=== PATIENT | male | born 1950 | race Caucasian/White ===

== ENCOUNTER 2017-08-07 09:15 | Inpatient (IN) | payer BC, OTHER ==
[2017-07-09 13:22] VITALS: BMI 32.0
--- NOTE | 2017-07-09 14:01 | PAT Medication Instructions ---
Service Date Jul 09, 2017. Current Home Medication List Acetaminophen (Tylenol), 1,000 MG PO BID Amlodipine (Norvasc), 10 MG PO QAM Aspirin (Aspirin Ec), 81 MG PO QPM Atenolol (Tenormin), 50 MG PO QAM Atorvastatin (Lipitor), 40 MG PO QPM Calcium Ascorbate (Vitamin C), 500 MG PO BID Coenzyme Q10 (Ubidecarenone) (Coq10), 200 MG PO QAM Ezetimibe (Zetia), 10 MG PO QPM Fexofenadine Hcl (Lisseth Allergy), 1 TAB PO QAM Fish Oil (Stamford-3), 1 CAP PO BID Vitamin E (Alph-E), 400 UNITS PO QPM [Hydrochlorothiazide], 1 TAB PO QAM Medication Instructions For Your Scheduled Surgery - Hold the following medications 2 weeks prior to surgery: Coenzyme Q10 (Ubidecarenone) (Coq10), 200 MG PO QAM Fish Oil (Stamford-3), 1 CAP PO BID Vitamin E (Alph-E), 400 UNITS PO QPM - Hold the following medications the morning of surgery: Fexofenadine Hcl (Lisseth Allergy), 1 TAB PO QAM [Hydrochlorothiazide], 1 TAB PO QAM Calcium Ascorbate (Vitamin C), 500 MG PO BID - Take the following medications the morning of surgery with a sip of water OTHERWISE NOTHING TO EAT OR DRINK AFTER MIDNIGHT: Amlodipine (Norvasc), 10 MG PO QAM Atenolol (Tenormin), 50 MG PO QAM Acetaminophen (Tylenol), 1,000 MG PO BID (may take if needed up to 4 hours prior to surgery) - Take the following medications as scheduled the night before surgery: Ezetimibe (Zetia), 10 MG PO QPM Aspirin (Aspirin Ec), 81 MG PO QPM Atorvastatin (Lipitor), 40 MG PO QPM Acetaminophen (Tylenol), 1,000 MG PO BID Calcium Ascorbate (Vitamin C), 500 MG PO BID If you have any questions please call us at [phone] or [phone] or [phone]
--- NOTE | 2017-07-09 14:46 | DIAGNOSTIC IMAGING REPORT ---
TWO VIEW CHEST CLINICAL HISTORY: Preoperative examination. FINDINGS: PA and lateral chest radiographs are obtained. No prior studies are available for comparison at the time of dictation. The heart is enlarged and there is atherosclerotic calcification of the thoracic aorta. The pulmonary vasculature is noncongested. Apparent pleural thickening at the left lung base is likely related to overlying soft tissue. No airspace consolidation or pleural effusion is identified. There is no pneumothorax. The skeletal structures are osteopenic. Degenerative change is seen in the shoulders and thoracic spine. A large calcified joint body is suggested in the left shoulder. IMPRESSION: 1. Cardiomegaly with no acute cardiopulmonary abnormality. 2. Apparent pleural thickening at the left lung base is likely related to overlying soft tissue. Correlation with oblique views is recommended for confirmation. Electronically signed by: Jose Dale M.D. 07/09/2017 2:44 PM Dictated Date/Time: 07/09/2017 2:43 PM
[2017-07-09 14:50] LABS: BASO % 0.3 %; BASO ABS # 0.02 K/uL (0-0.2); EOS % 1.6 %; EOS ABS # 0.11 K/uL (0-0.5); IG# 0.01 K/uL (0.00-0.02); LYMPH % 25.3 %; MEAN CELL VOLUME 86.9 fL (80-100); MEAN CORPUSCULAR HEMOGLOBIN 30.3 pg (25-34); MEAN CORPUSCULAR HGB CONC 34.9 g/dl (32-36); MONO % 9.7 %; MONO ABS # 0.65 K/uL (0.11-0.59); NEUT ABS # 4.24 K/uL (1.4-6.5); PLATELET COUNT 244 K/uL (130-400); RED CELL DISTRIBUTION WIDTH CV 12.8 % (11.5-14.5); WHITE BLOOD COUNT 6.73 K/uL (4.8-10.8)
[2017-07-09 15:02] LABS: ALBUMIN 3.6 gm/dl (3.4-5.0); CALCIUM 8.9 mg/dl (8.5-10.1); CREATININE 0.82 mg/dl (0.60-1.40); POTASSIUM 3.6 mmol/L (3.5-5.1); PTT PATIENT 25.7 SECONDS (21.0-31.0)
[2017-07-10 07:19] LABS: HEMOGLOBIN A1C 5.5 % (4.5-5.6)
--- NOTE | 2017-08-06 18:32 | HISTORY & PHYSICAL EXAMINATION ---
DATE OF ADMISSION: 08/07/2017 CHIEF COMPLAINT: Chronic right shoulder pain. HISTORY OF PRESENT ILLNESS: This is a 67-year-old male patient of Dr. Mcfarland complaining of chronic right shoulder pain for approximately 2 years now. The 2patient had no trauma or injury. It is progressively getting worse and he has failed conservative treatment, patient wished to proceed with an elective right total shoulder arthroplasty and after being diagnosed with end-stage osteoarthritis per clinical and radiographic exams. PAST MEDICAL HISTORY: Hypertension, hypercholesterolemia, sleep apnea with the use of CPAP, and BPH. SOCIAL HISTORY: He is a pack per day smoker for 20 years and nondrinker. PAST SURGICAL HISTORY: Hip replacement. REVIEW OF SYSTEMS: The patient complains of chronic right shoulder pain and weakness. Otherwise, denies any shortness of breath, chest pain, nausea, vomiting or joint complaints. FAMILY HISTORY: Noncontributory. MEDICATIONS: Fish oil 1200 mg daily, vitamin C 500 mg daily, vitamin E 400 international units daily, atorvastatin 40 mg daily, Zetia 10 mg daily, aspirin 81 mg daily, Tylenol 1000 mg in the morning, fish oil 1200 mg daily, vitamin C 500 mg daily, CoQ10 200 mg daily, Lisseth 180 mg daily, hydrochlorothiazide 10 mg daily, amlodipine besylate 10 mg daily, and atenolol 50 mg daily. ALLERGIES: No known drug allergies. PHYSICAL EXAMINATION: GENERAL: Well-developed, well-nourished 67-year-old male patient of Dr. Mcfarland. He is alert and oriented x3 and pleasant, in no acute distress. HEENT: Normocephalic, atraumatic. Extraocular motions are intact. Pupils are equal and reactive to light. HEART: Regular rate and rhythm, no murmurs appreciated. LUNGS: Clear. ABDOMEN: Soft, nontender, bowel sounds present. EXTREMITIES: Right shoulder reveals active range of motion of 120 degrees, passively to 160. He does have crepitation with passive range of motion. He has 5/5 strength. He has positive impingement pain. NEUROLOGIC: Neurovascularly, he is intact in his right upper extremity. DIAGNOSES: Right shoulder end-stage osteoarthritis with a history of hypertension, hypercholesterolemia, sleep apnea with the use of CPAP and benign prostatic hypertrophy. PLAN: The patient was advised of his diagnosis. Indications, risks, benefits, postop course have all been reviewed. The patient wishes to proceed with a right total shoulder arthroplasty versus reverse. Necessary consent forms, preoperative testing and clearances will be obtained.
[~2017-08-07] VITALS: Ht 177.8 cm; Wt 102.2 kg
[2017-08-07] VITALS (8 sets, daily range): BP systolic 128–166; BP diastolic 74–95; PULSE 61–70; TEMP 36.3–36.7; O2SAT 93–99; Ht 177.8 cm; Wt 102.2 kg
[~2017-08-07 09:15] MED LIST: ACETAMINOPHEN 500 MG TAB PO SCH; AMLO-114 PO; ASPI81TA28 PO; ATEN50TA8 PO; ATOR-24 PO; ATROPINE SULFATE 0.1 MG/ML 5ML SYR IV PRN; CALC500T72 PO; CEFAZOLIN 2000MG IV PUSH 10 ML IV SCH; COEN1CAP7 PO; CeleBREX 200 MG CAP PO SCH; DEXAMETHASONE 4 MG TAB PO SCH; EZET10TA63 PO; EpHEDrine SULFATE INJ 50 MG/ML AMP IV PRN; FAMOTIDINE 20 MG TAB PO SCH; FEXO1TAB49 PO; GABAPENTIN 300 MG CAP PO SCH; HYDROCHLOROTHIAZIDE PO; HYDROmorphone INJ 2 MG/ML SYR/VIAL IV PRN; LACTATED RINGER'S 1000ML 1,000 ML IV SCH; METOCLOPRAMIDE HCL 10 MG TAB PO SCH; OMEG10007 PO; ONDANSETRON INJ 2 MG/ML 2 ML VIAL IV PRN; PHENYLEPHRINE 100MCG/ML 5ML SYR IV PRN; ROPIVACAINE 0.5% 5 MG/ML 30 ML VIAL ONE; TYLOTC500 PO; VITA400C28 PO
[2017-08-07] MEDS ORDERED: DEXAMETHASONE SOD INJ 4 MG/ML VIAL ONE (10:28)
[2017-08-07] MEDS ORDERED: GLYCOPYRROLATE INJ 0.2 MG/ML VIAL ONE (10:28)
[2017-08-07] MEDS ORDERED: ONDANSETRON INJ 2 MG/ML 2 ML VIAL ONE (10:28)
[2017-08-07] MEDS ORDERED: SUCCINYLCHOLINE CHLORIDE 20 MG/ML 10 ML VIAL IV ONE (10:28)
[2017-08-07] MEDS ORDERED: LIDOCAINE HCL 2% 2 ML VIAL (20MG/ML) ONE (10:28)
[2017-08-07] MEDS ORDERED: NEOSTIGMINE METHYLSULFATE 5 MG/5 ML SYR ONE (10:28)
[2017-08-07] MEDS ORDERED: EpHEDrine SULFATE INJ 50 MG/ML AMP ONE (10:28)
[2017-08-07] MEDS ORDERED: PHENYLEPHRINE HCL INJ 10 MG/ML VIAL ONE (10:28)
[2017-08-07] MEDS ORDERED: FENTANYL CITRATE INJ 50 MCG/1 ML 2 ML VIAL ONE (10:28)
[2017-08-07] MEDS ORDERED: PROPOFOL IV EMULSION 10 MG/ML 20 ML VIAL IV ONE (10:28)
[2017-08-07] MEDS ORDERED: MIDAZOLAM HCL 1 MG/ML 2ML VIAL ONE (10:29)
--- NOTE | 2017-08-07 10:31 | History & Physical Bridge Note ---
H&P Re-Evaluation Bridge Note: I have examined the patient, reviewed the History & Physical and in the interval since the performance of the History & Physical I have noted the following changes of clinical significance: No changes noted
[2017-08-07] MEDS ORDERED: BACITRACIN 50000 UNIT VIAL ONE (10:54)
[2017-08-07] MEDS ORDERED: EpINEphrine HCL INJ 1 MG/ML 5ML SYRINGE ONE (11:04)
--- NOTE | 2017-08-07 14:57 | [facility] Post Operative Brief Note ---
Immediate Operative Summary Operative Date Aug 07, 2017. Pre-Operative Diagnosis Degenerative Joint Disease Right Shoulder Post-Operative Diagnosis Degenerative Joint Disease Right Shoulder,biceps tendinopathy with bicipital groove bone spurs Procedure(s) Performed Right Total Shoulder Arthroplasty, biceps tenodesis Surgeon Agricultural [employer] Forest[employer] Supervisor Surgeon(s) MARILEE Winn Estimated Blood Loss 50ml Findings severe end stage djd oa concentric wear pattern Specimens A. Right Humeral Head Drains 2 hemovac Anesthesia general regional Complication(s) None Disposition Recovery Room / PACU
[2017-08-07] MEDS ORDERED: ONDANSETRON INJ 2 MG/ML 2 ML VIAL IV PRN (15:00)
[2017-08-07] MEDS ORDERED: ALUMINUM/MAGNESIUM SUSP 30 ML UDC PO PRN (15:00)
[2017-08-07] MEDS ORDERED: MAGNESIUM HYDROXIDE SUSP 30 ML UDC PO PRN (15:00)
[2017-08-07] MEDS ORDERED: MoRPHine SULFATE 2 MG/ML CARP IV PRN (15:00)
[2017-08-07] MEDS ORDERED: OXYCODONE HCL IR 5 MG TAB (IMMEDIATE RELEASE) PO PRN (15:00)
[2017-08-07] MEDS ORDERED: MoRPHine SULFATE 4 MG/ML 1 ML CARP\\VIAL IV PRN (15:00)
[2017-08-07] MEDS ORDERED: KETOROLAC TROMETHAMINE 15 MG/ML VIAL IV. PRN (15:00)
--- NOTE | 2017-08-07 15:28 | DIAGNOSTIC IMAGING REPORT ---
R SHOULDER MIN 2 VIEWS ROUTINE CLINICAL HISTORY: Post shoulder surgery COMPARISON: None. DISCUSSION: There are postsurgical changes of a total right shoulder arthroplasty. No fractures or dislocations are visualized. There is air in soft tissues consistent with recent surgery. There are overlying skin shweta and surgical drains. IMPRESSION: Postsurgical changes of a total right shoulder arthroplasty. No evidence of dislocation Electronically signed by: Karl Walters M.D. 08/07/2017 3:26 PM Dictated Date/Time: 08/07/2017 3:26 PM
--- NOTE | 2017-08-07 15:51 | Anesthesiology Progress Note ---
Anesthesia Post Op Note Date & Time Aug 07, 2017 at 15:51 Vital Signs Pain Intensity: 0 Vital Signs Past 12 Hours Date Time Temp Pulse Resp B/P (MAP) Pulse Ox O2 Delivery O2 Flow Rate FiO2 08/07/17 15:35 36.2 62 16 146/87 98 Nasal Cannula 2 08/07/17 15:25 65 16 141/79 98 Nasal Cannula 3 08/07/17 15:15 60 16 149/84 99 Nasal Cannula 3 08/07/17 15:00 64 16 164/79 99 Nasal Cannula 3 08/07/17 14:51 36.2 71 16 148/89 96 Nasal Cannula 3 08/07/17 09:40 36.5 61 20 166/95 99 Room Air Notes Mental Status: alert / awake / arousable, participated in evaluation Pt Amnestic to Procedure: Yes Nausea / Vomiting: adequately controlled Pain: adequately controlled Airway Patency, RR, SpO2: stable & adequate BP & HR: stable & adequate Hydration State: stable & adequate Anesthetic Complications: no major complications apparent
[2017-08-07] MEDS: D5W AND 1/2NSS + 20MEQ KCL 1,000 ML IV SCH (17:30)
[2017-08-07] MEDS ORDERED: HYDR12.55 PO (18:34)
--- NOTE | 2017-08-07 18:42 | Medical Consult ---
Consultation Date of Consultation: Aug 07, 2017. Attending Physician: Graham Mendez M.D. Reason for Consultation: Medical management History of Present Illness This is a 67 y/o male with a history of HTN, HLD, SUKUMAR, and BPH who presents s/p right TSA with Dr. Mendez on 08/07 for medical management. The patient reports feeling well postoperatively. He denies any pain in the right shoulder but does note some tingling in the first three digits of his right hand. He is eating and urinating without difficulty postoperatively. He has not yet passed gas or had a bowel movement. The patient denies fevers, chills, sweats, chest pain, palpitations, claudication, cough, wheezing, shortness of breath, nausea, vomiting, abdominal pain, dysuria, hematuria, urinary retention, paralysis, weakness. Past Medical/Surgical History HTN HLD SUKUMAR BPH Family History Coronary artery disease Diabetes mellitus Lung cancer Stroke Social History Smoking Status: Current Some Day Smoker (smokes cigars some days, quit cigarette smoking) Smokeless Tobacco Use: No Alcohol Use: socially Drug Use: none Marital Status: Housing Status: lives with significant other Occupation Status: retired Allergies Coded Allergies: Molds & Smuts (Verified Allergy, Unknown, STUFFY NOSE ITCHY EYES, 08/07/17) NO KNOWN DRUG ALLERGIES (Verified Allergy, Unknown, NONE, 08/07/17) Current Inpatient Medications Current Inpatient Medications Medications (Trade) Dose Ordered Sig/Robert Route Start Time Stop Time Status Last Admin Dose Admin Amlodipine Besylate (Norvasc Tab) 10 mg QAM PO 08/08/17 09:00 09/07/17 08:59 Atenolol (Tenormin Tab) 50 mg QAM PO 08/08/17 09:00 09/07/17 08:59 Atorvastatin Calcium (Lipitor Tab) 40 mg QPM PO 08/07/17 21:00 09/06/17 20:59 EZETIMIBE (Zetia Tab) 10 mg QPM PO 08/07/17 21:00 09/06/17 20:59 Morphine Sulfate (MoRPHine SULFATE INJ) 2 mg Q4HWA PRN IV 08/07/17 15:00 08/21/17 14:59 Morphine Sulfate (MoRPHine SULFATE INJ) 4 mg Q4HWA PRN IV 08/07/17 15:00 08/21/17 14:59 Ondansetron HCl (Zofran Inj) 4 mg Q6H PRN IV 08/07/17 15:00 09/06/17 14:59 Al Hydroxide/Mg Hydroxide (Maalox Susp) 30 ml Q4H PRN PO 08/07/17 15:00 09/06/17 14:59 Potassium Chloride/Dextrose/ Sod Cl 1,000 ml @ 100 mls/hr Q10H IV 08/07/17 17:30 09/06/17 14:52 Oxycodone HCl (Roxicodone Immediate Rel Tab) `1-2 TABS FOR PAIN `1 TAB... Q4H PRN PO 08/07/17 15:00 08/21/17 14:59 Acetaminophen (Tylenol Tab) 1,000 mg Q8 PO 08/07/17 22:00 09/06/17 21:59 Magnesium Hydroxide (Milk Of Magnesia Susp) 30 ml Q6H PRN PO 08/07/17 15:00 09/06/17 14:59 Senna (Senokot Tab) 17.2 mg HS PO 08/07/17 21:00 09/06/17 20:59 Docusate Sodium (coLACE CAP) 100 mg BID PO 08/07/17 21:00 09/06/17 20:59 Multivitamins (Multivitamin Tab) 1 tab DAILY PO 08/08/17 09:00 09/07/17 08:59 Cefazolin Sodium 2000 mg/Syringe 10 ml @ 2.5 mls/min Q8H IV 08/07/17 20:00 08/08/17 04:03 Ketorolac Tromethamine (Toradol Inj) 15 mg Q6H PRN IV. 08/07/17 15:00 08/12/17 14:59 Review of Systems See HPI for pertinent positives and negatives. All other systems reviewed and negative. Physical Exam Date Time Temp Pulse Resp B/P (MAP) Pulse Ox O2 Delivery O2 Flow Rate FiO2 08/07/17 17:50 36.3 67 18 129/75 (93) 93 Room Air 08/07/17 16:50 36.6 67 18 130/81 (97) 98 Nasal Cannula 2.0 08/07/17 16:20 36.7 70 18 133/79 (97) 98 Nasal Cannula 2.0 08/07/17 15:35 36.2 62 16 146/87 98 Nasal Cannula 2 08/07/17 15:25 65 16 141/79 98 Nasal Cannula 3 08/07/17 15:15 60 16 149/84 99 Nasal Cannula 3 08/07/17 15:00 64 16 164/79 99 Nasal Cannula 3 08/07/17 14:51 36.2 71 16 148/89 96 Nasal Cannula 3 08/07/17 09:40 36.5 61 20 166/95 99 Room Air General appearance: +Obese. Well-developed, well-nourished, no apparent distress Head: Normocephalic, atraumatic Eyes: Normal inspection, PERRL, EOMI ENT: Normal ENT inspection, hearing grossly normal, pharynx normal Neck: Supple, no JVD, trachea midline Respiratory/Chest: Lungs clear to auscultation, normal breath sounds, no respiratory distress Cardiovascular: Regular rate & rhythm, no gallop, no murmur Abdomen/GI: Normal bowel sounds, non-tender, soft Extremities/Musculoskeletal: +Right shoulder in sling, dressed with drain in place. No calf tenderness, no pedal edema Neurological/Psych: Alert, normal mood/affect, oriented x 3 Skin: Normal color, warm/dry, no rash Assessment & Plan 67 y/o male with a history of HTN, HLD, SUKUMAR, and BPH who presents s/p right TSA with Dr. Mendez on 08/07 for medical management. S/p R TSA--POD #0 -Pain management, DVT prophylaxis, and PT/OT as per primary team -No pain, AVSS -Resume ASA when ok with primary team HTN, HLD--stable -Continue Norvasc 10 mg PO qd, atenolol 50 mg PO qd, Lipitor 40 mg PO hs, Zetia 10 mg PO hs -Hold HCTZ for now until renal function checked/stable, off IVF -Cover with hydralazine 10 mg IV q6h prn SBP >180 SUKUMAR -May use own CPAP BPH--states he does not take meds for this, denies voiding difficulties Code Status -Level I, FULL RESUSCITATION STATUS Thank you for this consultation. We will continue to follow. Resident Physician Supervision Note: I was present with the MARILEE Nick during the history and exam. I discussed the case with the resident and agree with the findings and plan as documented in the note. Any exceptions or clarifications are listed here: 67 y/o M Hx HTN, HLD, SUKUMAR, BPH - post R TSA - recovering well - no complaints of SOB, CP, N/V lighthead or excessive pain OE AAO x 3 S1,2 R CTAB NT, ND R arm splinted + pulses BL P: Cont Norvasc and Atenolol - HCTZ held mainor-op for AM labs Pt has brought his own CPAP Cont Statin therapy as prescribed Documented By: Donnell Herrera
--- NOTE | 2017-08-07 19:14 | OPERATIVE REPORT ---
DATE OF OPERATION: 08/07/2017 INDICATION FOR PROCEDURE: The patient is a 67-year-old male with progressive osteoarthritis in his right shoulder with chronic pain. His radiographs demonstrates [id number] in glenohumeral joint with concentric wear and a very large inferior humeral osteophyte. PREOPERATIVE DIAGNOSIS: End-stage osteoarthritis of the right shoulder. POSTOPERATIVE DIAGNOSES: Same including chronic biceps tenosynovitis, bicipital bone groove spurs. PROCEDURE: Right total shoulder arthroplasty and biceps tenodesis. SURGEON: Dr. Mendez. ENVIRONMENTAL STUDIES PROFESSOR: Mega Coats PA-C. ANESTHESIA: Regional block and general. OPERATIVE PROCEDURE: The patient was taken to the operating room, anesthetized block and general anesthetic. He was placed on the operating room table in a 40 degree beach chair position. A towel roll was placed in the medial border of his right scapula, he was translated to right side of the bed, so his shoulder could be manipulated off the bed as necessary. His head was placed on a foam headrest. He had protective eyewear placed. TEDs and SCDs. His right shoulder exam demonstrated that he had decreased range of motion and stiffness all consistent with osteoarthritis. He is a very large man. He had thick muscle envelope and some minimal fat and subcutaneous tissues. His right shoulder was sterilely prepped and draped with ChloraPrep. An anterior deltopectoral approach was performed to the right shoulder. Skin was incised sharply and subcutaneous flaps were elevated. The cephalic vein was dissected out and retracted laterally with the deltoid. Pectoralis was retracted medially. The upper centimeter of the pectoralis was released for inferior exposure. The biceps tendon sheath had a very large area of tenosynovitis. This was opened up and the tendon tenosynovium was resected. This revealed a large bicipital bone grooves surrounding the biceps tendon. The biceps spurs were resected. Biceps tendon was tenodesed to the pectoralis tendon and divided proximally. The subscapularis and rotator cuff, subacromial bursa was all resected revealing an intact rotator cuff. The circumflex vessels were identified, tied off with silk ties and divided laterally. The rotator interval was opened up and extended laterally to the lesser tuberosity area. The subscapularis muscle fibers were split at the level of the circumflex vessels, dissected down to the capsule, reflected off the inferior capsule with a Kitner elevator. The axillary nerve was identified with a tug test and then a blunt Hohmann retractor was placed between the capsule and the axillary nerve to protect the axillary nerve. A transtendinous incision was made through the subscapularis leaving a cuff of tissue for repair on the lesser tuberosity. The incision was carried down to the tendon and then the capsule was then released off the neck and there was a very large inferior humeral osteophyte, which was exposed with gradual external rotation. An artist chisel was used to resect the large inferior osteophyte as well as a rongeur. Then we did release the capsule with a Miranda elevator off the neck of the humerus. The humeral head was completely exposed bone as well as the glenoid with no articular surface on the glenoid with concentric type wear pattern. The humeral head was retracted posterior to the glenoid and then the capsule was released under direct visualization down to the anterior glenoid, released off the anterior glenoid and rotator was released to meet this release so a 360 degree release was performed to the subscapularis. A Bankart retractor was placed anteriorly. The remainder of the glenoid labrum was resected circumferentially as well as the remainder of the biceps tendon. I did our anterior inferior, posterior inferior capsular release and we resected a large posterior inferior osteophyte off the posterior glenoid using a curved osteotome. The humerus was then exposed with extension and external rotation. An oscillating saw was used to make an anatomic cut of the humeral articular surface. The humeral articular surface was sized between a 52 and a 54 mm implant. I used the Tornier total shoulder arthroplasty system using the Ascend Flex stem for the humerus and the glenoid component being the Affiniti pegged glenoid component. The glenoid was exposed at this time retracting the humeral head posterior to the glenoid. A central drill hole was made into the glenoid followed by the reamer for a 52 mm glenoid component. Then, the central drill hole was widened for the peg, the implant and then the guide for the peripheral pegs was placed and the peripheral peg holes were drilled. Trial reduction was performed with a 52 Affiniti glenoid trial, which had good fit. The trial was removed and the glenoid was irrigated copiously with antibiotic solution with bacitracin then the peg holes were packed with epinephrine-soaked tampons and then the Palacos G cement was vacuum mixed. Then, the final component was cemented cementing the peripheral pegs the base of the central PEG tube, remainder of the central peg was press fit. All excess cement was cleared and once the cement cured, attention was taken to the humeral preparation. A central awl was used to open up the canal followed by broaches up to a 7, which appeared to be the appropriate size for the stem; however, on sequential broaching, a size 6 was very tight and we went ahead with the 6 trial broach stem implant and we did trial reductions with a 52 and a 54 heads and the 54 head gave best stability. The humeral implant was then removed and the angle of the stem was a C standard stem and the humeral head was a 54 x 23 high offset, which gave the best coverage. The canal was irrigated with antibiotic solution and bacitracin. Three drill holes were made into the hard bone in the bicipital groove lateral to the lesser tuberosity and transosseous #5 FiberWire sutures x3 were placed. Then the final component was assembled taking note of the offset position, which was reproduced. The 54 x 23 mm humeral head was assembled to 60 standard humeral stem. Then this was implanted into the humerus with a tight pressfit. This was reduced to the glenoid. Shoulder was stable through range of motion tested. The subscapularis was then repaired with the #5 FiberWire sutures using Joaquín-Elmo suture technique and lateral row soft tissue repair with [id number] #2 Fiberwire including repairing the rotator interval in maximal external rotation with interrupted #2 Fiberwire sutures. The repair was stable through 140 degrees of forward elevation and 40 degrees of external rotation and 90 degrees, abduction without any tension on the repair. After further irrigation, the pectoralis was repaired with [id number] #2 FiberWire sutures passing sutures back through the biceps tendon to reinforce tenodesis. After copious irrigation, 2 drains were placed. The deltopectoral interval was closed with [id number] #1 Vicryl sutures, subcutaneous tissue closed with interrupted 2-0 Vicryl, skin closed with shweta, sterile dressings were applied and a shoulder immobilizer. MARILEE Winn was my first coat operator who was with case assistant for the entire procedure. He assisted in patient positioning, arm positioning, soft tissue retraction, instrument management and performed the subcutaneous skin closure and will participate in postoperative care of the patient. I attest to the content of the Intraoperative Record and any orders documented therein. Any exception s are noted below.
[2017-08-07 19:20] LABS: HEMATOCRIT 40.6 % (42-52); HEMOGLOBIN 14.2 g/dL (14.0-18.0); MEAN CELL VOLUME 85.3 fL (80-100); MEAN CORPUSCULAR HEMOGLOBIN 29.8 pg (25-34); MEAN PLATELET VOLUME 10.5 fL (7.4-10.4); PLATELET COUNT 227 K/uL (130-400); RED CELL DISTRIBUTION WIDTH CV 12.5 % (11.5-14.5); RED CELL DISTRIBUTION WIDTH SD 38.6 fL (36.4-46.3)
[2017-08-07 19:37] LABS: CALCIUM 8.7 mg/dl (8.5-10.1); CREATININE 0.98 mg/dl (0.60-1.40); POTASSIUM 3.5 mmol/L (3.5-5.1)
[2017-08-07] MEDS: CEFAZOLIN IV 2,000 MG in SYRINGE 0 ML IV SCH (20:23)
[2017-08-07] MEDS: SENNA 8.6 MG TAB PO SCH (20:25)
[2017-08-07] MEDS: DOCUSATE SODIUM 100 MG CAP PO SCH (20:25)
[2017-08-07] MEDS: EZETIMIBE 10MG TAB PO SCH (20:25)
[2017-08-07] MEDS: ATORVASTATIN 40 MG TAB PO SCH (20:25)
[2017-08-07] MEDS: ACETAMINOPHEN 500 MG TAB PO SCH (21:56)
[2017-08-08] MEDS: D5W AND 1/2NSS + 20MEQ KCL 1,000 ML IV SCH ×2 (00:40→10:32)
[2017-08-08 03:41] VITALS: BP 133/73; PULSE 62; TEMP 36.7; O2SAT 96
[2017-08-08] MEDS: CEFAZOLIN IV 2,000 MG in SYRINGE 0 ML IV SCH (04:06)
[2017-08-08] MEDS: ACETAMINOPHEN 500 MG TAB PO SCH ×3 (05:32→21:55)
[2017-08-08 07:20] LABS: HEMATOCRIT 38.7 % (42-52); HEMOGLOBIN 13.3 g/dL (14.0-18.0); MEAN CELL VOLUME 85.2 fL (80-100); MEAN CORPUSCULAR HEMOGLOBIN 29.3 pg (25-34); MEAN CORPUSCULAR HGB CONC 34.4 g/dl (32-36); MEAN PLATELET VOLUME 10.7 fL (7.4-10.4); PLATELET COUNT 208 K/uL (130-400); RED CELL DISTRIBUTION WIDTH CV 12.8 % (11.5-14.5); RED CELL DISTRIBUTION WIDTH SD 39.8 fL (36.4-46.3); WHITE BLOOD COUNT 15.27 K/uL (4.8-10.8)
[2017-08-08 07:54] VITALS: BP 136/76; PULSE 63; TEMP 36.6; O2SAT 96
[2017-08-08 07:55] LABS: CALCIUM 8.6 mg/dl (8.5-10.1); CREATININE 0.9 mg/dl (0.60-1.40); POTASSIUM 3.9 mmol/L (3.5-5.1)
--- NOTE | 2017-08-08 07:59 | Orthopedic Progress Note ---
Orthopedic Progress Note Date of Service Aug 08, 2017. Subjective Post OP Day: 1 Reports: feeling well, Denies: complaints Objective calves soft nontender, dressing C/D/I, A&O x3, CMS intact, hemovac drainage ( 100ml latest shift; 275ml to date) Sling in place Date Time Temp Pulse Resp B/P (MAP) Pulse Ox O2 Delivery O2 Flow Rate FiO2 08/08/17 03:41 36.7 62 16 133/73 (93) 96 BiPAP 08/08/17 00:00 Room Air CPAP 08/07/17 23:35 36.6 67 18 130/74 (92) 95 Room Air 08/07/17 19:34 36.3 61 19 128/76 (93) 93 Room Air 08/07/17 19:27 36.3 61 19 128/76 (93) 93 Room Air 08/07/17 17:50 36.3 67 18 129/75 (93) 93 Room Air 08/07/17 16:50 36.6 67 18 130/81 (97) 98 Nasal Cannula 2.0 08/07/17 16:20 36.7 70 18 133/79 (97) 98 Nasal Cannula 2.0 08/07/17 15:50 95 Nasal Cannula 2.0 08/07/17 15:50 36.6 65 16 129/77 (94) 95 Nasal Cannula 2.0 08/07/17 15:50 95 Nasal Cannula 2.0 08/07/17 15:35 36.2 62 16 146/87 98 Nasal Cannula 2 08/07/17 15:25 65 16 141/79 98 Nasal Cannula 3 08/07/17 15:15 60 16 149/84 99 Nasal Cannula 3 08/07/17 15:00 64 16 164/79 99 Nasal Cannula 3 08/07/17 14:51 36.2 71 16 148/89 96 Nasal Cannula 3 08/07/17 09:40 36.5 61 20 166/95 99 Room Air Laboratory Results 24 Hours: Test 08/07/17 19:08 08/08/17 06:49 Hematocrit 40.6 % 38.7 % Hemoglobin 14.2 g/dL 13.3 g/dL Assessment & Plan Assessment: POD 1 s/p R TSA Plan: PT/OT Planning for OPPT Plan for dc tomorrow Inhouse Planning Pain Management: Toradol, Morphine, PO Tylenol, Oxy IR DVT Prophylaxis: TEDs, SCDs, ASA Discharge Planning Discharge Planning: home with oppt
[2017-08-08] MEDS: MULTIVITAMIN TAB PO SCH (08:57)
[2017-08-08] MEDS: DOCUSATE SODIUM 100 MG CAP PO SCH ×2 (08:57→21:02)
[2017-08-08] MEDS: AMLODIPINE BESYLATE 5 MG TAB PO SCH (08:58)
[2017-08-08] MEDS: ASPIRIN 325 MG ECTAB PO SCH (09:30)
[2017-08-08 11:14] VITALS: BP 131/77; PULSE 60; TEMP 36.8; O2SAT 97
--- NOTE | 2017-08-08 12:11 | Discharge Instructions ---
Discharge Instructions Date of Service Aug 08, 2017. Admission Reason for Admission: Right Shoulder Degenerative Joint Disease Discharge Discharge Diagnosis / Problem: RIGHT TSA, BICEPS TENODESIS Discharge Goals Goal(s): Improve function Activity Recommendations Activity Limitations: as noted below . Instructions / Follow-Up Instructions / Follow-Up ACTIVITY RECOMMENDATIONS: SELF CARE INSTRUCTIONS AFTER TOTAL SHOULDER ARTHROPLASTY A. You may do daily exercises as taught in physical therapy while in hospital. No lifting with the operative arm. Please schedule your outpatient physical therapy appointment to begin within 2-3 days after leaving the hospital. Specific restrictions will be written on your physical therapy prescription that is provided to you. B. You are to wear your sling/immobilizer at all times EXCEPT when performing your daily exercises, participating in physical therapy and for hygiene purposes. C. You may perform dry, daily dressing changes. Please keep your incision covered. You may shower 48 hours after surgery. Do not apply soap or any ointment/ lotions directly over incision. Do not soak incision in bath tub/swimming pool. D. You may use ice as needed to operative shoulder. SPECIAL CARE INSTRUCTIONS: MEDICATION INSTRUCTIONS: *It is recommended you take Aspirin 325mg daily for four weeks post-op. VERY IMPORTANT TO READ AND REVIEW A. There are a few signs you need to watch for after you are home. Call [facility] at [phone] if you experience any of the followin. Increased severe shoulder pain. Some pain is expected especially when you exercise. 2. Increased swelling in you shoulder or arm; pain or swelling in either upper extremity. 3. Any fluid drainage from the incision. 4. Shortness of breath or chest pain. B. Please call [facility] at [phone] if you have any questions or concerns about your operation or recovery. C. Call your physician if: 1. Temperature is greater than 101 degrees (F). 2. Pain is not relieved by prescribed pain medications. 3. Increase drainage or redness from incision. 4. Unanswered questions or concerns. FOLLOW UP VISIT: Please call [facility] at [phone] to schedule a follow up appointment with Dr. Mendez or his PA in 12-14 days from your surgery date. Current Hospital Diet Patient's current hospital diet: Regular Diet Discharge Diet Recommended Diet: Regular Diet Procedures Procedures Performed: Right Total Shoulder Arthroplasty, biceps tenodesis Pending Studies Studies pending at discharge: no Laboratory Results Hemoglobin A1c Test 07/09/17 14:10 Range/Units Estimated Average Glucose 111 mg/dl Hemoglobin A1c 5.5 4.5-5.6 % Medical Emergencies . Who to Call and When: Medical Emergencies: If at any time you feel your situation is an emergency, please call 911 immediately. . Non-Emergent Contact Non-Emergency issues call your: Primary Care Provider . "Provider Documentation" section prepared by João Marie. . VTE Core Measure Inpt VTE Proph given/why not?: Other Anticoagulation (ASA), T.E.D. Stockings, SCD's [place] Drug Monitoring Program Search Results: patient reviewed within database, no issues identified
--- NOTE | 2017-08-08 15:00 | Progress Note ---
Subjective Date of Service: Aug 08, 2017. Subjective Pt evaluation today including: conversation w/ patient, physical exam, lab review, review of inpatient medication list Pain: controlled PO Intake: adequate Voiding: no voiding problems patient doing well, pain controlled Hb stable, Cr stable Review of Systems Musculoskeletal: + joint pain (shoulder, right) All Other Systems: Reviewed and Negative Medications Current Inpatient Medications Medications (Trade) Dose Ordered Sig/Robert Route Start Time Stop Time Status Last Admin Dose Admin Amlodipine Besylate (Norvasc Tab) 10 mg QAM PO 08/08/17 09:00 09/07/17 08:59 08/08/17 08:58 10 MG Atenolol (Tenormin Tab) 50 mg QAM PO 08/08/17 09:00 09/07/17 08:59 08/08/17 08:58 50 MG Atorvastatin Calcium (Lipitor Tab) 40 mg QPM PO 08/07/17 21:00 09/06/17 20:59 08/07/17 20:25 40 MG EZETIMIBE (Zetia Tab) 10 mg QPM PO 08/07/17 21:00 09/06/17 20:59 08/07/17 20:25 10 MG Morphine Sulfate (MoRPHine SULFATE INJ) 2 mg Q4HWA PRN IV 08/07/17 15:00 08/21/17 14:59 Morphine Sulfate (MoRPHine SULFATE INJ) 4 mg Q4HWA PRN IV 08/07/17 15:00 08/21/17 14:59 Ondansetron HCl (Zofran Inj) 4 mg Q6H PRN IV 08/07/17 15:00 09/06/17 14:59 Al Hydroxide/Mg Hydroxide (Maalox Susp) 30 ml Q4H PRN PO 08/07/17 15:00 09/06/17 14:59 Oxycodone HCl (Roxicodone Immediate Rel Tab) `1-2 TABS FOR PAIN `1 TAB... Q4H PRN PO 08/07/17 15:00 08/21/17 14:59 08/08/17 14:30 5 MG Acetaminophen (Tylenol Tab) 1,000 mg Q8 PO 08/07/17 22:00 09/06/17 21:59 08/08/17 14:29 1,000 MG Magnesium Hydroxide (Milk Of Magnesia Susp) 30 ml Q6H PRN PO 08/07/17 15:00 09/06/17 14:59 Senna (Senokot Tab) 17.2 mg HS PO 08/07/17 21:00 09/06/17 20:59 08/07/17 20:25 17.2 MG Docusate Sodium (coLACE CAP) 100 mg BID PO 08/07/17 21:00 09/06/17 20:59 08/08/17 08:57 100 MG Multivitamins (Multivitamin Tab) 1 tab DAILY PO 08/08/17 09:00 09/07/17 08:59 08/08/17 08:57 1 TAB Ketorolac Tromethamine (Toradol Inj) 15 mg Q6H PRN IV. 08/07/17 15:00 08/12/17 14:59 08/08/17 04:06 15 MG Aspirin (Ecotrin Tab) 325 mg QAM PO 08/08/17 09:00 09/07/17 08:59 08/08/17 09:30 325 MG Objective Vital Signs Date Time Temp Pulse Resp B/P (MAP) Pulse Ox O2 Delivery O2 Flow Rate FiO2 08/08/17 11:14 36.8 60 19 131/77 (95) 97 Room Air 08/08/17 08:00 Room Air 08/08/17 07:54 36.6 63 18 136/76 (96) 96 Room Air 08/08/17 03:41 36.7 62 16 133/73 (93) 96 BiPAP 08/08/17 00:00 Room Air CPAP 08/07/17 23:35 36.6 67 18 130/74 (92) 95 Room Air 08/07/17 19:34 36.3 61 19 128/76 (93) 93 Room Air 08/07/17 19:27 36.3 61 19 128/76 (93) 93 Room Air 08/07/17 17:50 36.3 67 18 129/75 (93) 93 Room Air 08/07/17 16:50 36.6 67 18 130/81 (97) 98 Nasal Cannula 2.0 08/07/17 16:20 36.7 70 18 133/79 (97) 98 Nasal Cannula 2.0 08/07/17 15:50 95 Nasal Cannula 2.0 08/07/17 15:50 36.6 65 16 129/77 (94) 95 Nasal Cannula 2.0 08/07/17 15:50 95 Nasal Cannula 2.0 08/07/17 15:35 36.2 62 16 146/87 98 Nasal Cannula 2 08/07/17 15:25 65 16 141/79 98 Nasal Cannula 3 08/07/17 15:15 60 16 149/84 99 Nasal Cannula 3 08/07/17 15:00 64 16 164/79 99 Nasal Cannula 3 Physical Exam General Appearance: WD/WN, no apparent distress Eyes: normal inspection, EOMI, sclerae normal ENT: normal ENT inspection, hearing grossly normal, pharynx normal Neck: supple, no adenopathy, no JVD, trachea midline Respiratory/Chest: chest non-tender, lungs clear, normal breath sounds, no respiratory distress, no accessory muscle use Cardiovascular: regular rate, rhythm, no edema, no gallop, no JVD, no murmur Abdomen: normal bowel sounds, non tender, soft, no organomegaly Extremities: no pedal edema, no calf tenderness, pelvis stable, + pertinent finding (right arm in sling, right shoulder tender) Neurologic/Psychiatric: diffuser operator II-XII nml as tested, no motor/sensory deficits, alert, normal mood/affect, oriented x 3 Skin: normal color, warm/dry, no rash Laboratory Results Last 24 Hours Test 08/07/17 19:08 08/08/17 06:49 White Blood Count 15.50 K/uL 15.27 K/uL Red Blood Count 4.76 M/uL 4.54 M/uL Hemoglobin 14.2 g/dL 13.3 g/dL Hematocrit 40.6 % 38.7 % Mean Corpuscular Volume 85.3 fL 85.2 fL Mean Corpuscular Hemoglobin 29.8 pg 29.3 pg Mean Corpuscular Hemoglobin Concent 35.0 g/dl 34.4 g/dl RDW Standard Deviation 38.6 fL 39.8 fL RDW Coefficient of Variation 12.5 % 12.8 % Platelet Count 227 K/uL 208 K/uL Mean Platelet Volume 10.5 fL 10.7 fL Sodium Level 140 mmol/L 140 mmol/L Potassium Level 3.5 mmol/L 3.9 mmol/L Chloride Level 106 mmol/L 107 mmol/L Carbon Dioxide Level 25 mmol/L 25 mmol/L Anion Gap 9.0 mmol/L 8.0 mmol/L Blood Urea Nitrogen 20 mg/dl 24 mg/dl Creatinine 0.98 mg/dl 0.90 mg/dl Est Creatinine Clear Calc Drug Dose 85.2 ml/min 92.8 ml/min Estimated GFR () 90.8 100.6 Estimated GFR (Non- 78.4 86.8 BUN/Creatinine Ratio 20.0 26.4 Random Glucose 129 mg/dl 128 mg/dl Calcium Level 8.7 mg/dl 8.6 mg/dl Hepatitis C Antibody Screen NEG Assessment and Plan 67 y/o male with a history of HTN, HLD, SUKUMAR, and BPH who presents s/p right TSA with Dr. Mendez on 08/07 for medical management. S/p R TSA--POD #1 -Pain controlled -AVSS -Resume ASA when ok with primary team HTN, HLD--stable -Continue Norvasc 10 mg PO qd, atenolol 50 mg PO qd, Lipitor 40 mg PO hs, Zetia 10 mg PO hs -can resume HCTZ on discharge -Cover with hydralazine 10 mg IV q6h prn SBP >180 SUKUMAR -May use own CPAP BPH--states he does not take meds for this, denies voiding difficulties Code Status -Level I, FULL RESUSCITATION STATUS will sign off at this time, please call for any new medical issues
[2017-08-08 15:12] VITALS: BP 152/82; PULSE 62; TEMP 36.8; O2SAT 97
[2017-08-08] MEDS: SENNA 8.6 MG TAB PO SCH (21:00)
[2017-08-08] MEDS: EZETIMIBE 10MG TAB PO SCH (21:53)
[2017-08-08] MEDS: ATORVASTATIN 40 MG TAB PO SCH (21:54)
[2017-08-08 22:55] VITALS: BP 144/89; PULSE 61; TEMP 36.6; O2SAT 97
[2017-08-09 05:59] LABS: HEMATOCRIT 35.2 % (42-52); HEMOGLOBIN 12.1 g/dL (14.0-18.0); MEAN CELL VOLUME 87.1 fL (80-100); MEAN CORPUSCULAR HGB CONC 34.4 g/dl (32-36); MEAN PLATELET VOLUME 10.8 fL (7.4-10.4); PLATELET COUNT 187 K/uL (130-400); RED CELL DISTRIBUTION WIDTH CV 13.2 % (11.5-14.5); RED CELL DISTRIBUTION WIDTH SD 42.5 fL (36.4-46.3); WHITE BLOOD COUNT 8.89 K/uL (4.8-10.8)
[2017-08-09] MEDS: ACETAMINOPHEN 500 MG TAB PO SCH (05:59)
[2017-08-09 06:14] VITALS: BP 142/84; PULSE 58; TEMP 36.7; O2SAT 97
[2017-08-09 06:40] LABS: CALCIUM 8.2 mg/dl (8.5-10.1); CREATININE 0.75 mg/dl (0.60-1.40); POTASSIUM 3.9 mmol/L (3.5-5.1)
[2017-08-09 07:39] VITALS: BP 151/84; PULSE 66
[2017-08-09] MEDS: DOCUSATE SODIUM 100 MG CAP PO SCH (07:40)
[2017-08-09] MEDS: ASPIRIN 325 MG ECTAB PO SCH (07:40)
[2017-08-09] MEDS: MULTIVITAMIN TAB PO SCH (07:41)
[2017-08-09] MEDS: AMLODIPINE BESYLATE 5 MG TAB PO SCH (07:41)
--- NOTE | 2017-08-09 07:46 | Orthopedic Progress Note ---
Orthopedic Progress Note Date of Service Aug 09, 2017. Subjective Post OP Day: 2 Reports: feeling well, pain controlled w PO medications, Denies: complaints Objective calves soft nontender, dressing C/D/I, A&O x3, CMS intact Date Time Temp Pulse Resp B/P (MAP) Pulse Ox O2 Delivery O2 Flow Rate FiO2 08/09/17 07:39 66 151/84 (106) 08/09/17 06:14 36.7 58 16 142/84 (103) 97 CPAP 08/09/17 00:00 Room Air CPAP 08/08/17 22:55 36.6 61 17 144/89 (107) 97 Room Air 08/08/17 15:25 Room Air 08/08/17 15:12 36.8 62 20 152/82 (105) 97 Room Air 08/08/17 11:14 36.8 60 19 131/77 (95) 97 Room Air 08/08/17 08:00 Room Air 08/08/17 07:54 36.6 63 18 136/76 (96) 96 Room Air Laboratory Results 24 Hours: Test 08/09/17 05:33 Hematocrit 35.2 % Hemoglobin 12.1 g/dL Assessment & Plan Assessment: POD 2 s/p R TSA Plan: PT/OT Planning for OPPT Plan for dc today Inhouse Planning Pain Management: Toradol, Morphine, PO Tylenol, Oxy IR DVT Prophylaxis: TEDs, SCDs, ASA Discharge Planning Discharge Planning: home with oppt
[2017-08-09] MEDS ORDERED: TYLOTC500 PO (07:48)
[2017-08-09] MEDS ORDERED: RXC5 PO (07:48)
[2017-08-09 09:58] VITALS: BP 151/84; PULSE 66; TEMP 36.7; O2SAT 97
--- NOTE | 2017-08-12 11:53 | DISCHARGE SUMMARY ---
DISCHARGE DIAGNOSIS: Degenerative joint disease, right shoulder. SECONDARY DIAGNOSES: Hypertension, hypercholesterolemia, sleep apnea with use of CPAP and benign prostatic hypertrophy. CONSULTS: Janelle Nick PA-C/Donnell Herrera MD COMPLICATIONS: None. PROCEDURES: Right total shoulder arthroplasty and biceps tenodesis by Dr. Mendez on 08/07/2017. BRIEF HISTORY: As dictated the in history and physical. HOSPITAL SUMMARY: The patient was admitted on the above date and had the above-noted surgery performed, which he tolerated well. On the first postoperative day, calves were soft and nontender. Dressings were clean, dry and intact. CMS was intact and sling was in place. Vital signs were stable. He was afebrile. Hemoglobin was 13.3 and he was started on physical therapy protocol and continued on DVT prophylaxis and pain management. By his second postoperative day, he was feeling well and pain was controlled. Dressing was clean, dry and intact. CMS was intact. Hemoglobin was 12.1. Vital signs were stable. He was progressing well and it was felt he could be discharged to home. For further review, please see chart. LAB AND X-RAY DATA: As per chart. DISCHARGE INSTRUCTIONS: The patient was discharged to home in satisfactory condition on 08/09/2017. DIET: Regular. ACTIVITY: Follow total shoulder arthroplasty instruction sheets and special care instructions as noted. Follow up with Dr. Mendez in 2 weeks. The patient is to call for an appointment if one has not been made for you. DISCHARGE MEDICATIONS: Oxycodone 5-10 mg p.o. q. 4 hours p.r.n. Resume home meds as listed in the discharge instructions section and change acetaminophen to 1000 mg p.o. q. 8 hours for 21 days.
== END 2017-08-09 10:30 | disposition home or self-care (01) | DRG 483 ==
LOC: C.ACU 09:15 → C.3E 10:20 → ENRESERV 15:28
PROVIDERS: ADMIT Orthopaedic Surgery Sports Medicine; ATTEND Orthopaedic Surgery Sports Medicine
PROC: 0RRJ0JZ Replacement of Right Shoulder Joint with Synthetic Substitute, Open Approach (ICD-10-PCS; principal; 2017-08-07 11:30)
DX: M19.011 Primary osteoarthritis, right shoulder (principal); I10 Essential (primary) hypertension; E78.00 Pure hypercholesterolemia, unspecified; G47.30 Sleep apnea, unspecified; N40.0 Benign prostatic hyperplasia without lower urinary tract symptoms; F17.290 Nicotine dependence, other tobacco product, uncomplicated; Z96.649 Presence of unspecified artificial hip joint; Z83.3 Family history of diabetes mellitus

== ENCOUNTER 2020-10-01 07:17 | Inpatient (IN) ==
--- NOTE | 2020-09-22 16:42 | Anesthesiology Consultation ---
Date of Service September 22, 2020 Assessment & Plan (1) Encounter for pre-operative examination: Chart Review Chart Review: Acceptable Risk for Surgery (pending preop Covid testing ) and Patient NOT seen in Pre Admission Testing Per nursing assessment 09/09/2020, patient resides in [facility]. Travels to [facility] for medical appts. Uses PPE. No known Covid positive contacts or Covid related symptoms. Patient denies any known Covid infection in the past 90 days. Patient will follow-up with surgeon regarding preop Covid testing = will await results. Right TSA 08/08/17= Done under GA with Grade 2 view with MAC #3. ETT #7.5. No anesthesia issues noted per record. History Surgery Operation Date: 10/01/20 09:20 Proposed Procedures p Left Total Knee Arthroplasty - Graham Mendez MD Height/Weight Height: 5 ft 10 in Weight: 101.151 kg Allergies Allergy/AdvReac Type Severity Reaction Status Date / Time mold Allergy Unknown STUFFY Verified 10/01/20 07:49 NOSE ITCHY EYES No Known Drug Allergies Allergy Unknown NONE Verified 10/01/20 07:49 Medications Home Medications Medication Instructions Recorded Confirmed Last Taken acetaminophen [Tylenol Extra 1,000 mg PO BID 06/27/20 10/01/20 1 Week Ago Strength] ~09/24/20 amlodipine 10 mg PO QAM 06/27/20 10/01/20 10/01/20 05:00 ascorbic acid (vitamin C) [Vitamin 500 mg PO BID 06/27/20 10/01/20 09/25/20 C] aspirin [Aspir-81] 81 mg PO QPM 06/27/20 10/01/20 1 Week Ago ~09/24/20 atenolol 50 mg PO QAM 06/27/20 10/01/20 10/01/20 05:00 atorvastatin 40 mg PO PM 06/27/20 10/01/20 09/30/20 18:00 coQ10 (ubiquinol) 100 mg PO QAM 06/27/20 10/01/20 1 Week Ago ~09/24/20 ezetimibe 10 mg PO PM 06/27/20 10/01/20 09/30/20 18:00 fexofenadine [Lisseth] 180 mg PO QAM 06/27/20 10/01/20 1 Week Ago ~09/24/20 hydrochlorothiazide 12.5 mg PO QAM 06/27/20 10/01/20 1 Week Ago ~09/24/20 meloxicam 15 mg PO QAM 06/27/20 10/01/20 2 Weeks Ago ~09/17/20 omega 1-nvw-vnj-fish oil [Fish Oil] 1,200 cap PO BID 06/27/20 10/01/20 1 Week Ago ~09/24/20 vitamin E 400 unit PO QPM 06/27/20 10/01/20 2 Weeks Ago ~09/17/20 Active Medications Generic Name Dose Route Start Last Admin Trade Name Mark PRN Reason Stop Dose Admin Acetaminophen 1,000 mg 10/01/20 06:00 10/01/20 08:11 Acetaminophen 500 Mg Tab PO 10/01/20 18:00 1,000 mg PREOP PRICE Administration Celecoxib 200 mg 10/01/20 06:00 10/01/20 08:12 Celebrex 200 Mg Cap PO 10/01/20 18:00 200 mg PREOP PRICE Administration Dexamethasone 8 mg 10/01/20 06:00 10/01/20 08:11 Dexamethasone 4 Mg Tab PO 10/01/20 18:00 8 mg PREOP PRICE Administration Famotidine 20 mg 10/01/20 06:00 10/01/20 08:12 Famotidine 20 Mg Tab PO 10/01/20 18:00 20 mg PREOP PRICE Administration Gabapentin 300 mg 10/01/20 06:00 10/01/20 08:12 Gabapentin 300 Mg Cap PO 10/01/20 18:00 300 mg PREOP PRICE Administration Lactated Ringer's 1,000 mls @ 15 mls/hr 10/01/20 06:00 10/01/20 08:10 Lr IV 10/01/20 18:00 15 mls/hr .Q24H PRICE Administration Metoclopramide HCl 10 mg 10/01/20 06:00 10/01/20 08:12 Metoclopramide Hcl 10 Mg Tablet PO 10/01/20 18:00 10 mg PREOP PRICE Administration Past Medical History Medical History Bifascicular block Noted on 2016 EKG- seen by cardio and subsequent ECHO done that showed no issues -pt was told to follow with cardio only if needed. Enlarged prostate Hyperlipidemia Hypertension Sleep apnea CPAP Past Family History Family History Grandmother (Paternal) Family history of diabetes mellitus Past Surgical History Surgical History History of cardiac cath 15+ YRS AGO -NO STENTS NEEDED-[facility] History of colonoscopy X 3 History of total hip arthroplasty LEFT History of total shoulder replacement RIGHT Social History Smoking Status: Light tobacco smoker Smoking cigarettes per day: 1-2 CIGAR PER DAY MOST DAYS Do You Dip or Chew Tobacco: No Hx Alcohol Use: Yes Alcohol type: beer alcohol intake frequency: a few times a week Hx Substance Use: No substance use type: does not use Physical Exam Vital Signs Last Vital Signs Temp 37 C 10/01/20 07:54 Pulse 52 L 10/01/20 07:54 Resp 20 10/01/20 07:54 BP 142/91 H 10/01/20 07:54 Pulse Ox 97 10/01/20 07:54 Testing Laboratory Results 09/16/2020 = WBC: 6.60 H/H: 14.9/44.3 PLATELETS: 246 SODIUM: 142 POTASSIUM: 4.0 CHLORIDE: 107 CO2: 29 BUN: 17.8 CREATININE: 0.92 GLUCOSE: 99 HGB A1C: 5.3 PT: 11.4 PTT: 31.2 INR: 0.99 UA: Negative Electrocardiogram Date: 09/16/20 Sinus rhythm with sinus arrhythmia at 57 bpm. Abnormal left axis deviation. Right bundle branch block. Minimal voltage criteria for LVH may be normal variant. Chest X-Ray Date: 07/01/20 Findings: + NAD and + cardiomegaly (mild) There is mild elevation of the right hemidiaphragm. Echocardiogram Date: 07/26/17 EF: 55-60% LV Function: normal RWMA: + none Other Findings: + LVH (borderline/concentric ) Valvular Disease: + no significant valvular disease Mild aortic root dilation. Mild dilated ascending aorta.
--- NOTE | 2020-09-25 12:43 | History & Physical Report ---
Date of Service September 25, 2020 Assessment & Plan (1) Primary osteoarthritis of left knee: Treatment options discussed with patient. He has failed conservative measures as above. Risks, benefits and alternatives to surgery including but not limited to infection, DVT, pain, stiffness, need for revision surgery, damage to blood vessels, damage to nerves, PE, , were discussed with the patient and they wish to proceed. Plan will be for left total knee arthroplasty at [facility] on 10/01/[address] Mendez. DVT prophylaxis will be ASA 81mg BID x 1 mo. Will plan on HHPT post discharge from the hospital. All questions answered. He will follow up post oepratively. History of Present Illness Chief Complaint: Left knee pain Primary Care Provider: Jonathan Arreguin * 70 year old male with PMHx significant for HTN, high cholesterol, SUKUMAR, BPH who has long standing left knee pain. He has failed conservative measures including anti-inflammatories, cortisone, and viscoelastic injections. Pain is interfering with his daily activities. He would like to proceed with left knee replacement. Patient denies headaches, sweats, fevers, chills, double vision, blurred vision, cough, sore throat, dysphagia, chest pain, sob, wheezing, n/v/d/c, numbness, tingling, fatigue, urinary symptoms, mood disorders. ROS positive for left knee pain and stiffness. Allergies Allergy/AdvReac Type Severity Reaction Status Date / Time mold Allergy Unknown STUFFY Verified 09/09/20 10:14 NOSE ITCHY EYES No Known Drug Allergies Allergy Unknown NONE Verified 09/09/20 10:14 Home Medications Medication Instructions Recorded Confirmed Type acetaminophen [Tylenol Extra 1,000 mg PO BID 06/27/20 09/09/20 History Strength] amlodipine 10 mg PO QAM 06/27/20 09/09/20 History ascorbic acid (vitamin C) [Vitamin 500 mg PO BID 06/27/20 09/09/20 History C] aspirin [Aspir-81] 81 mg PO QPM 06/27/20 09/09/20 History atenolol 50 mg PO QAM 06/27/20 09/09/20 History atorvastatin 40 mg PO PM 06/27/20 09/09/20 History coQ10 (ubiquinol) 100 mg PO QAM 06/27/20 09/09/20 History ezetimibe 10 mg PO PM 06/27/20 09/09/20 History fexofenadine [Lisseth] 180 mg PO QAM 06/27/20 09/09/20 History hydrochlorothiazide 12.5 mg PO QAM 06/27/20 09/09/20 History meloxicam 15 mg PO QAM 06/27/20 09/09/20 History omega 6-atl-qsv-fish oil [Fish Oil] 1,200 cap PO BID 06/27/20 09/09/20 History vitamin E 400 unit PO QPM 06/27/20 09/09/20 History Past Med/Surg History Medical History Bifascicular block Noted on 2016 EKG- seen by cardio and subsequent ECHO done that showed no issues -pt was told to follow with cardio only if needed. Enlarged prostate Hyperlipidemia Hypertension Sleep apnea CPAP Surgical History History of cardiac cath 15+ YRS AGO -NO STENTS NEEDED-[facility] History of colonoscopy X 3 History of total hip arthroplasty LEFT History of total shoulder replacement RIGHT Family History Grandmother (Paternal) Family history of diabetes mellitus Social History Smoking Status: Light tobacco smoker Cigarettes Per Day: 1-2 CIGAR PER DAY MOST DAYS; Second Hand Exposure: No; Do You Dip or Chew Tobacco: No; Tobacco Cessation Education Requested by Patient: No Hx Alcohol Use: Yes Alcohol type: beer Hx Substance Use: No Preferred Language: Kyrgyz Communication Ability: Effective Clock Repairer Required: No Beliefs That Will Affect Care: None Current Living Situation: Spouse Other Information That Helps Us Care for You: No Feels Safe at Home: Yes Safety Concerns: Feels Safe At This Time Assistive Devices: Glasses Review of Systems All systems reviewed & are unremarkable except as noted in HPI & below Physical Exam Constitutional: well developed and well nourished; no acute distress Eyes: PERRL, conjunctivae normal, anicteric sclerae ENMT: external ear and nose normal, oropharynx normal Neck: trachea midline, no thyromegaly Respiratory: normal respiratory effort, lungs clear to auscultation Cardiovascular: RRR, no murmur, no edema Musculoskeletal: Left knee: Tenderness medial joint line, painful ROM, ROM 0- 135. Stable to valgus and varus stress. Mild effusion. Varus alignment. Positive Anna's Skin: no rashes, warm and dry Neurologic: patellar DTR's 2+ bilat, sensation intact Psychiatric: A+Ox3, euthymic affect Results & Data ([facility]) Diagnostic Findings Left knee radiographs: Significant joint space narrowing medial compartment with near bone on bone articulation, periarticular osteophyte formation and subchondral sclerosis.
[~2020-10-01 07:17] MED LIST changes: -AMLO-114 PO; -ASPI81TA28 PO; -ATEN50TA8 PO; -ATOR-24 PO; -ATROPINE SULFATE 0.1 MG/ML 5ML SYR IV PRN; -CALC500T72 PO; -CEFAZOLIN 2000MG IV PUSH 10 ML IV SCH; -COEN1CAP7 PO; -DEXAMETHASONE 4 MG TAB PO SCH; -EZET10TA63 PO; -EpHEDrine SULFATE INJ 50 MG/ML AMP IV PRN; -FEXO1TAB49 PO; -HYDROCHLOROTHIAZIDE PO; -HYDROmorphone INJ 2 MG/ML SYR/VIAL IV PRN; -LACTATED RINGER'S 1000ML 1,000 ML IV SCH; +LR 500ML BOLUS, THEN 15ML/HR IV SCH; -METOCLOPRAMIDE HCL 10 MG TAB PO SCH; +METOCLOPRAMIDE HCL 10 MG TABLET PO SCH; -OMEG10007 PO; -ONDANSETRON INJ 2 MG/ML 2 ML VIAL IV PRN; -PHENYLEPHRINE 100MCG/ML 5ML SYR IV PRN; -ROPIVACAINE 0.5% 5 MG/ML 30 ML VIAL ONE; +ROPIVACAINE 0.5% HCL/PF 150 MG, BUPIVACAINE 0.75% MPF 20 ML, EPINEPHrine 30MG/30ML (OR ... INSTIL SCH; +TRANEXAMIC ACID 1,000 MG **IV Intra-op IV SCH; +TRANEXAMIC ACID 1,000 MG **IV Pre-op IV SCH; -TYLOTC500 PO; -VITA400C28 PO; +ceFAZolin 2000MG 2,000 MG/15 ML SYR IV SCH; +dexAMETHasone 4 MG TAB PO SCH
[2020-10-01] MEDS ORDERED: fentaNYL citrate 100 MCG/2 ML VIAL ONE (07:58)
[2020-10-01] MEDS ORDERED: PROPOFOL IV EMULSION 10 MG/ML 20 ML VIAL IV ONE ×3 (07:58→11:00)
[2020-10-01] MEDS ORDERED: MIDAZOLAM HCL 1 MG/ML 2ML VIAL ONE (07:58)
[2020-10-01] MEDS ORDERED: BUPIVACAINE 0.5 % 5 MG/1 ML PF 10ML VIAL ONE (08:24)
[2020-10-01] MEDS ORDERED: BUPIVACAINE 0.25% 30 ML VIAL ONE (08:24)
[2020-10-01] MEDS ORDERED: ATROPINE SULFATE 0.1 MG/ML 10ML SYR IV PRN (08:25)
[2020-10-01] MEDS ORDERED: ONDANSETRON INJ 2 MG/ML 2 ML VIAL IV PRN ×2 (08:25→12:55)
[2020-10-01] MEDS ORDERED: ePHEDrine sulfate 50 MG/ML AMP IV PRN (08:25)
[2020-10-01] MEDS ORDERED: fentaNYL citrate 100 MCG/2 ML VIAL IV PRN (08:25)
[2020-10-01] MEDS ORDERED: BACITRACIN INJ 50,000 UNIT VIAL ONE (08:45)
[2020-10-01] MEDS ORDERED: ORTHO JOINT ANESTHETIC ONE (08:45)
--- NOTE | 2020-10-01 09:12 | History & Physical Bridge Note ---
Date of Service October 01, 2020 History & Physical Bridge Note I have examined the patient, reviewed the History & Physical and in the interval since the performance of the History & Physical I have noted the following changes of clinical significance: no changes noted
--- NOTE | 2020-10-01 11:31 | Operative Report ---
Post Operative Report Pre & Post Diagnosis Operation Date: 10/01/20 09:20 Pre-Op Diagnosis: Osteoarthritis Left Knee Post-Op Diagnosis: Osteoarthritis Left Knee, popliteus tendinitis I identified the patient and participated in the time-out.: Yes Procedure Operation Date: 10/01/20 09:20 Actual Procedures p Left Total Knee Arthroplasty(Left), superficial wound VAC and lateral release- Graham Mendez MD Surgeon Graham Mendez MD Research Agricultural Engineer Mike HUNT Estimated Blood Loss 5 Findings Consistent with Post-Op Diagnosis Specimens Bone cuts Drains 2 Hemovac Anesthesia Type MAC Spinal Regional Complications none Disposition Accompanied Patient To Recovery: No Disposition: Recovery Room Indications 70-year-old male with chronic bilateral knee pain severe end-stage bilateral knee osteoarthritis. Left knee more painful than right. Both knees are [id number] medial compartment with patellofemoral OA as well. Patient has varus knees. Some laxity LCL bilaterally. Description of Procedure Patient was taken to the operating room placed supine on the operating table and anesthetized under spinal MAC regional anesthesia. Exam under anesthesia demonstrated 10 to 15 degree flexion contracture with good flexion of the knee and some laxity LCL tight MCL with varus knee.. A pneumatic tourniquet was placed about the thigh of the left lower extremity. The left lower extremity was prepped and draped in usual fashion. The leg was elevated exsanguinated with an Esmarch bandage and the pneumatic was raised to 325 mm mercury. An anterior incision was made across the left knee. The skin was incised longitudinally subcutaneous flaps were elevated and an incision was made through the medial retinaculum extending up into the mid third of the quadriceps tendon and extended down to the medial tibial tubercle. Intra-articular findings demonstrated grade 4 trochlea osteoarthritis still had patella articular surface. Grade 4 medial compartment osteoarthritis with degenerative tearing medial meniscus. Normal lateral compartment. Intact cruciate ligaments.. The knee was exposed by excising the infrapatellar fat pad, excising the meniscal remnants and anterior cruciate ligament. Any inflamed synovial tissue was resected. The fat pad over the anterior femur was resected for placement of the component in that area. The lateral synovial bands were release. The femur was exposed. The custom femoral cutting block was pinned in position. The distal femoral cutting block was applied. The distal femoral cut was made with the oscillating saw. I resected +2 from standard cut due to flexion contracture. The size 11, 4-in-1 cutting block was placed. The anterior and posterior c hamfer cuts were made. The knee was extended and a subperiosteal peel lateral release was performed around the patella. The patella width was measured and width was reproduced using freehand cut technique. The 35 x 9 millimeter symmetrical patella was used. 3 drill holes are made for the pegs. The tibia was exposed. A custom tibial cutting block was positioned and drill holes were made for the cutting guide. Cutting guide was placed and the proximal cut was made with the oscillating saw. All osteophytes were resected. The lamina laborer stores was used to assess ligamentous balance and the ligaments were balanced in extension and flexion. The tibia was reexposed and measured for a size G tibial component. This was externally rotated in line with the tibial tubercle and the fixation pins were drilled. The proximal tibia was fashioned with the drill and punch. The size 11 CR left femoral trial was inserted. The trial MC inserts were used. The 13 mm insert gave balanced ligaments through full range of motion. The patella tracked with some slight lateral liftoff so I did a formal lateral release leaving the synovium intact and the patella tracked centrally. the trials were removed. The orthomix anesthetic cocktail was injected per protocol. The knee was then copiously irrigated with pulsatile lavage antibiotic solution with bacitracin. The final components were cemented with Simplex cement. The final components were [employer] persona left 11 CR standard femoral component, G tibial component, 13 left MC tibial polyethylene, 35 x 9 symmetrical patella. After the cement cured with the knee in full extension the Betadine soak was used per protocol. The knee joint was copiously irrigated with antibiotic solution with bacitracin. 2 drains were brought out laterally and connected to a Hemovac. The quadriceps tendon and medial retinaculum were closed with interrupted [id number] #1 Vicryl sutures. The knee was taken through a full range of motion and repair was secure. Patient has 0 -140 degrees range of motion. The subcutaneous tissues were closed with 2-0 Vicryl sutures and skin was closed with shweta. Marilu and Acticoat superficial wound VAC was applied and the patient tolerated the procedure well. Mike HUNT my physician zoning assistant, assisted in soft tissue retraction instrument management leg positioning the closure application of the superficial wound VAC and will participate in the postoperative care of the patient. I attest to the content of the Intraoperative Record and any orders documented therein. Any exceptions are noted below.
--- NOTE | 2020-10-01 12:27 | XRay Report ---
XR knee LT 1 or 2V routine CLINICAL HISTORY: Surgical Post Op COMPARISON: None. DISCUSSION: There are postsurgical changes of a total left knee arthroplasty and patellar resurfacing . The femoral tibial components appear well seated. There are overlying skin shweta and surgical jen ins. There is gas present within the soft tissues, likely postsurgical. There is a partially visualiz ed deformity of the mid femur. This may be old. Clinical correlation advocated. IMPRESSION: 1. Postsurgical changes of a total left knee arthroplasty 2. Partially visualized deformity of the mid femur. This could be old. Clinical correlation advocated . ACT 112: Negative or not required by law. Electronically signed by: Karl Walters M.D. 10/01/2020 12:26 PM
[2020-10-01] MEDS ORDERED: METOCLOPRAMIDE HCL INJ 5 MG/ML 2 ML VIAL IV PRN (12:55)
[2020-10-01] MEDS ORDERED: TAMSULOSIN HCL 0.4 MG CAP PO PRN (12:55)
[2020-10-01] MEDS ORDERED: HYDROmorphone INJ 0.5 MG/0.5 ML SYR IV PRN (12:55)
[2020-10-01] MEDS ORDERED: NALOXONE HCL 0.4 MG/1 ML VIAL/CARP IV PRN (12:55)
[2020-10-01] MEDS ORDERED: oxyCODONE HCL IR 5 MG TAB (IMMEDIATE RELEASE) PO PRN (12:55)
[2020-10-01] MEDS ORDERED: MAGNESIUM HYDROXIDE SUSP 30 ML UDC PO PRN (12:55)
[2020-10-01] MEDS ORDERED: bisacodyL 10 MG SUPP PR PRN (12:55)
--- NOTE | 2020-10-01 13:13 | Anesthesiology Progress Note ---
Date of Service October 01, 2020 Anesthesia Post Procedure Vital Signs Vital Signs: Temp Pulse Pulse Resp BP BP Pulse Ox 10/01/20 12:20 50 L 14 133/71 96 10/01/20 12:05 36.4 C L 51 L 14 135/77 94 10/01/20 11:55 36.4 C L 50 L 14 125/71 94 10/01/20 11:45 50 L 14 133/65 99 10/01/20 11:35 36.3 C L 50 L 14 123/62 100 10/01/20 07:54 37 C 52 L 20 142/91 H 97 Transfer of Care Handoff Completed per policy Notes Mental Status: alert / awake / arousable Patient Amnestic to Procedure: Yes Nausea / Vomiting: adequately controlled Pain: adequately controlled Airway Patency, RR, SpO2: stable & adequate BP & HR: stable & adequate Hydration State: stable & adequate Neuraxial Anesthesia: was administered and sensory block is resolving Anesthetic Complications: no major complications apparent and Pt Satisfied with anesthetic care
[2020-10-01] MEDS: ACETAMINOPHEN 500 MG TAB PO SCH ×2 (13:18→21:08)
[2020-10-01] MEDS ORDERED: SODIUM CHLORIDE 0.9% 1000ML 1,000 ML IV SCH (14:00)
--- NOTE | 2020-10-01 15:16 | Hospitalist Consultation ---
Date of Consultation October 01, 2020 Assessment & Plan (1) Primary osteoarthritis of left knee: S/p left knee arthroplasty 10/01/2020 - POD #0 Pain and DVT prophylaxis management per primary orthopedic team. (2) Sleep apnea: CPAP at bedtime. Patient will use his own. (3) Hyperlipidemia: Continue atorvastatin 40 mg p.o. every afternoon (4) Hypertension: Continue his usual antihypertensive medication with atenolol 50 mg p.o. every morning, amlodipine 10 mg p.o. every morning, hydrochlorothiazide 12.5 mg p.o. every morning with hold parameters (5) Enlarged prostate: On no prescription medication for this (saw santy at home). No current lower urinary tract symptoms. Monitor for urine retention. Thank you for the consult. No acute medical needs identified. We will sign off at this time. Please feel free to contact the hospitalist team if he needs to be seen again. History of Present Illness Attending Physician: Graham Mendez MD History of Present Illness Twin Shanks is a 70-year-old male who presents to the hospital for elective left total knee arthroplasty with superficial wound VAC and lateral release performed today by Dr. Mendez. The patient has no acute complaints. Reports his blood pressure is usually well controlled. No recent chest pain or shortness of breath on exertion. No known cardiovascular disease. Allergies Allergy/AdvReac Type Severity Reaction Status Date / Time mold Allergy Unknown STUFFY Verified 10/01/20 07:49 NOSE ITCHY EYES No Known Drug Allergies Allergy Unknown NONE Verified 10/01/20 07:49 Home Medications Medication Instructions Recorded Confirmed Type acetaminophen [Tylenol Extra 1,000 mg PO BID 06/27/20 10/01/20 History Strength] amlodipine 10 mg PO QAM 06/27/20 10/01/20 History ascorbic acid (vitamin C) [Vitamin 500 mg PO BID 06/27/20 10/01/20 History C] aspirin [Aspir-81] 81 mg PO QPM 06/27/20 10/01/20 History atenolol 50 mg PO QAM 06/27/20 10/01/20 History atorvastatin 40 mg PO PM 06/27/20 10/01/20 History coQ10 (ubiquinol) 100 mg PO QAM 06/27/20 10/01/20 History ezetimibe 10 mg PO PM 06/27/20 10/01/20 History fexofenadine [Lisseth] 180 mg PO QAM 06/27/20 10/01/20 History hydrochlorothiazide 12.5 mg PO QAM 06/27/20 10/01/20 History meloxicam 15 mg PO QAM 06/27/20 10/01/20 History omega 5-hym-vft-fish oil [Fish Oil] 1,200 cap PO BID 06/27/20 10/01/20 History vitamin E 400 unit PO QPM 06/27/20 10/01/20 History Patient History Medical History (Updated 10/01/20 @ 15:18 by Alec Foy MD) Bifascicular block Noted on 2016 EKG- seen by cardio and subsequent ECHO done that showed no issues -pt was told to follow with cardio only if needed. Enlarged prostate Hyperlipidemia Hypertension Sleep apnea CPAP Surgical History (Updated 10/02/20 @ 06:07 by João Hays PA-C) History of cardiac cath 15+ YRS AGO -NO STENTS NEEDED-[facility] History of colonoscopy X 3 History of total hip arthroplasty LEFT History of total shoulder replacement RIGHT Family History Grandmother (Paternal) Family history of diabetes mellitus Social History Smoking Status: Light tobacco smoker Cigarettes Per Day: 1-2 CIGAR PER DAY MOST DAYS; Second Hand Exposure: No; Do You Dip or Chew Tobacco: No; Tobacco Cessation Education Requested by Patient: No Hx Alcohol Use: Yes Alcohol type: beer Hx Substance Use: No Preferred Language: Macanese Communication Ability: Effective Junior Paralegal Required: No Beliefs That Will Affect Care: None marital status: Current Living Situation: Spouse Other Information That Helps Us Care for You: No Feels Safe at Home: Yes Safety Concerns: Feels Safe At This Time Assistive Devices: Glasses and Walker Review of Systems Review of Systems: All systems reviewed & are unremarkable except as noted in HPI & below Physical Exam Constitutional: WD/WN, vitals as above Respiratory: normal respiratory effort, lungs clear to auscultation Cardiovascular: RRR, no murmur, no edema Gastrointestinal (Abdomen): normal bowel sounds, soft, nontender, no hepatosplenomegaly Skin: no rashes, warm and dry Neurologic: moves all extremities (Left lower extremity moving toes) and awake; not confused Psychiatric: A+Ox3, euthymic affect Results & Data Results & Data ([facility]) Vital Signs (Past 12 Hours) Vital Signs Temp Pulse Pulse Resp BP BP Pulse Ox 10/01/20 14:46 36.5 C 53 L 16 145/88 H 157/83 H 95 10/01/20 13:57 50 L 16 142/84 H 97 10/01/20 13:15 36.5 C 50 L 14 148/93 H 96 10/01/20 12:20 50 L 14 133/71 96 10/01/20 12:05 36.4 C L 51 L 14 135/77 94 10/01/20 11:55 36.4 C L 50 L 14 125/71 94 10/01/20 11:45 50 L 14 133/65 99 10/01/20 11:35 36.3 C L 50 L 14 123/62 100 10/01/20 07:54 37 C 52 L 20 142/91 H 97 PG Care Time/CCT Total # of Minutes Spent Total Time Spent with Patient: Total time spent is greater than 50% in coordination of care (as documented) at patient's floor/unit and/or counseling patient: Coding Level of Care Code 84963 Inpt Consult Level 4 Diagnoses Primary osteoarthritis of left knee M17.12 Sleep apnea G47.30 Hyperlipidemia E78.5 Hypertension I10 Enlarged prostate N40.0
[2020-10-01] MEDS: ceFAZolin 2000MG 2,000 MG/15 ML SYR IV SCH (17:31)
[2020-10-01] MEDS: DOCUSATE SODIUM 100 MG CAP PO SCH (20:41)
[2020-10-01] MEDS: CeleBREX 200 MG CAP PO SCH (20:41)
[2020-10-01] MEDS: ASPIRIN 81 MG ECTAB PO SCH (20:42)
[2020-10-01] MEDS: ASCORBIC ACID 500 MG TAB PO SCH (20:43)
[2020-10-01] MEDS: OMEGA-3 (PURIFIED FISH OIL) 1 GM CAP PO SCH (20:51)
[2020-10-01] MEDS ORDERED: EZETIMIBE 10 MG TABLET PO SCH (21:00)
[2020-10-01] MEDS ORDERED: TOCOPHERYL, DL-ALPHA 400 UNITS CAP PO SCH (21:00)
[2020-10-01] MEDS ORDERED: ATORVASTATIN 40 MG TAB PO SCH (21:00)
[2020-10-01] MEDS ORDERED: SENNA 8.6 MG TAB PO SCH (21:00)
[2020-10-02] MEDS: ceFAZolin 2000MG 2,000 MG/15 ML SYR IV SCH (02:58)
[2020-10-02] MEDS: ACETAMINOPHEN 500 MG TAB PO SCH ×2 (06:04→14:11)
[2020-10-02 06:07] LABS: Hematocrit (blood only) 38.3 % (42-52); Hemoglobin 13.1 g/dL (14.0-18.0); Mean Corpuscular Hemoglobin 29.4 pg (25-34); Mean Corpuscular Hgb Conc 34.2 g/dL (32-36); Mean Corpuscular Volume 86.1 fL (80-100); Mean Platelet Volume 11.3 fL (7.4-10.4); Platelet Count 251 K/uL (130-400); RDW Coefficient of Variation 12.6 % (11.5-14.5); RDW Standard Deviation 40.2 fL (36.4-46.3); Red Blood Count 4.45 M/uL (4.7-6.1); White Blood Count 15.61 K/uL (4.8-10.8)
--- NOTE | 2020-10-02 06:07 | Orthopedic Progress Note ---
Date of Service October 02, 2020 Assessment & Plan (1) History of total left knee replacement: POD #1 s/p Left TKA pt/ot dvt proph with ALEA/SCD/ASA plan for d/c home with HHPT, will see how he performs in PT today, discussed having home nurse d/c hemovac tomorrow if needed incidental finding of question deformity of the mid femur, has h/o left hip replacement, will obtain xray left hip/pelvis this am Admission and Anticipated Discharge Date Admission Date: October 01, 2020 Subjective POD #1 s/p Left TKA Review of Systems Constitutional: no fever, no chills and no sweats Respiratory: no cough and no dyspnea Cardiovascular: no chest pain and no dyspnea Gastrointestinal: no abdominal pain, no nausea and no vomiting Physical Exam Physical Exam: Vital Signs Temp 36.7 C 10/02/20 02:59 Pulse 55 L 10/02/20 02:59 Resp 18 10/02/20 02:59 BP 160/81 H 10/02/20 02:59 Pulse Ox 95 10/02/20 02:59 Intake & Output 10/01/20 10/01/20 10/02/20 06:59 18:59 06:59 Intake Total 2728.333 / 2728.33 3 Output Total 540 / 965 425 / 965 Balance 2188.333 / 1763.33 3 -425 / 1763.333 Weight 103.328 kg Intake: IV 1428.333 / 1428.33 3 Lr 1,000 ml @ 15 mls/hr IV . 900 / 900 Q24H PRICE Rx#:[id number] Nss 1000ML 1,0 00 ml @ 100 mls/ 428.333 / 428.333 hr IV .Q10H SC H Rx#:[id number] TRANEXAMIC ACI D / 0.7% NACL 1, 100 / 100 000 mg In 100 ml @ 600 mls/hr IV TODAY@0600 [facility] Rx#:[id number] IV Perioperative 850 / 850 Oral 450 / 450 Output: Urine 505 / 605 100 / 605 Estimated Blood Loss 5 / 5 Drain Output 325 / 355 Left Knee Hemo vac 325 / 355 Other: # Unmeasured Voi ds 1 1 Weight Measureme nt Method Standing Scale Constitutional: WD/WN, vitals as above no acute distress Musculoskeletal: Left Leg: NVDI, calf SNT, negative sunday sign. DP palpable, able to wiggle toes/ankle movement without difficulty. dressing clean dry and intact. Results & Data ([facility]) Vital Signs (Past 12 Hours) Vital Signs Temp Pulse Resp BP BP Pulse Ox 10/02/20 02:59 36.7 C 55 L 18 160/81 H 95 10/01/20 22:22 36.8 C 56 L 16 143/81 H 96 10/01/20 20:04 36.7 C 57 L 16 136/82 95 Laboratory Results Laboratory Results WBC 15.61 K/uL (4.8-10.8) H 10/02/20 05:34 RBC 4.45 M/uL (4.7-6.1) L 10/02/20 05:34 Hgb 13.1 g/dL (14.0-18.0) L 10/02/20 05:34 Hct 38.3 % (42-52) L 10/02/20 05:34 MCV 86.1 fL (80-100) 10/02/20 05:34 MCH 29.4 pg (25-34) 10/02/20 05:34 MCHC 34.2 g/dL (32-36) 10/02/20 05:34 RDW Std Deviation 40.2 fL (36.4-46.3) 10/02/20 05:34 RDW Coeff of Robbin 12.6 % (11.5-14.5) 10/02/20 05:34 Plt Count 251 K/uL (130-400) 10/02/20 05:34 MPV 11.3 fL (7.4-10.4) H 10/02/20 05:34 Sodium 144 mmol/L (136-145) 10/02/20 05:34 Potassium 4.3 mmol/L (3.5-5.1) 10/02/20 05:34 Chloride 111 mmol/L (98-107) H 10/02/20 05:34 Carbon Dioxide 29 mmol/L (21-32) 10/02/20 05:34 Anion Gap 4.0 (3-11) 10/02/20 05:34 BUN 23 mg/dl (7-18) H 10/02/20 05:34 Creatinine 0.84 mg/dl (0.6-1.4) 10/02/20 05:34 Est Cr Clr Drug Dosing 95.7 ml/min 10/02/20 05:34 Est GFR ( Amer) 101.4 10/02/20 05:34 Est GFR (Non-Af Amer) 87.5 10/02/20 05:34 BUN/Creatinine Ratio 27.8 (10-20) H 10/02/20 05:34 Glucose 111 mg/dl (70-99) H 10/02/20 05:34 Calcium 8.9 mg/dl (8.5-10.1) 10/02/20 05:34 Blood Type O Positive 10/01/20 07:37 Antibody Screen NEGATIVE 10/01/20 07:37 Diagnostic Findings XR knee LT 1 or 2V routine CLINICAL HISTORY: Surgical Post Op COMPARISON: None. DISCUSSION: There are postsurgical changes of a total left knee arthroplasty and patellar resurfacing. The femoral tibial components appear well seated. There are overlying skin shweta and surgical drains. There is gas present within the soft tissues, likely postsurgical. There is a partially visualized deformity of the mid femur. This may be old. Clinical correlation advocated. IMPRESSION: 1. Postsurgical changes of a total left knee arthroplasty 2. Partially visualized deformity of the mid femur. This could be old. Clinical correlation advocated.
[2020-10-02 06:43] LABS: BUN Creatinine Ratio 27.8 (10-20); Calcium 8.9 mg/dl (8.5-10.1); Creatinine Clr Calc Pharmacy 95.7 ml/min; Est GFR (African American) 101.4; Est GFR (Non-African American) 87.5; Potassium 4.3 mmol/L (3.5-5.1)
[2020-10-02] MEDS: OMEGA-3 (PURIFIED FISH OIL) 1 GM CAP PO SCH (07:03)
[2020-10-02] MEDS: ASPIRIN 81 MG ECTAB PO SCH (08:30)
[2020-10-02] MEDS: DOCUSATE SODIUM 100 MG CAP PO SCH (08:30)
[2020-10-02] MEDS: ASCORBIC ACID 500 MG TAB PO SCH (08:31)
[2020-10-02] MEDS: CeleBREX 200 MG CAP PO SCH (08:32)
--- NOTE | 2020-10-02 08:58 | XRay Report ---
XR hip LT 2V w pelvis CLINICAL HISTORY: Abnormal knee x-ray. COMPARISON: None. DISCUSSION: There are postsurgical changes of a total left hip arthroplasty. There are mild osteoarth ritic changes involving the right hip. There is a focal area of benign-appearing cortical thickening/ periostitis involving the lateral aspect of the mid femoral shaft. This is not felt to be acute. This likely relates to an old traumatic injury. IMPRESSION: 1. 10 cm focus of cortical/periosteal thickening involving the lateral cortex of the mid femoral shaf t. This has a nonaggressive appearance. 2. Total left hip arthroplasty. No acute fractures ACT 112: Negative or not required by law. Electronically signed by: Karl Walters M.D. 10/02/2020 8:57 AM
[2020-10-02] MEDS ORDERED: MULTIVITAMIN TAB PO SCH (09:00)
[2020-10-02] MEDS ORDERED: NON-FORMULARY MEDICATION (Coq10 (Ubiquinol) 100 mg Capsule) PO SCH (09:00)
[2020-10-02] MEDS ORDERED: hydroCHLOROthiazide 25 MG TAB PO SCH (09:00)
[2020-10-02] MEDS ORDERED: amLODIPine BESYLATE 5 MG TAB PO SCH (09:00)
[2020-10-02] MEDS ORDERED: ATENOLOL 50 MG TABLET PO SCH (09:00)
[2020-10-02] MEDS ORDERED: FEXOFENADINE HCL 180 MG TAB PO SCH (09:00)
--- NOTE | 2020-10-02 19:26 | Discharge Summary ---
Date of Service October 02, 2020 Admission HPI Per Admitting Provider * 70 year old male with PMHx significant for HTN, high cholesterol, SUKUMAR, BPH who has long standing left knee pain. He has failed conservative measures including anti-inflammatories, cortisone, and viscoelastic injections. Pain is interfering with his daily activities. He would like to proceed with left knee replacement. Patient denies headaches, sweats, fevers, chills, double vision, blurred vision, cough, sore throat, dysphagia, chest pain, sob, wheezing, n/v/d/c, numbness, tingling, fatigue, urinary symptoms, mood disorders. ROS positive for left knee pain and stiffness. Admission Exam Per Admitting Provider Constitutional: well developed and well nourished; no acute distress Eyes: PERRL, conjunctivae normal, anicteric sclerae ENMT: external ear and nose normal, oropharynx normal Neck: trachea midline, no thyromegaly Respiratory: normal respiratory effort, lungs clear to auscultation Cardiovascular: RRR, no murmur, no edema Musculoskeletal: Left knee: Tenderness medial joint line, painful ROM, ROM 0-135. Stable to valgus and varus stress. Mild effusion. Varus alignment. Positive Anna's Skin: no rashes, warm and dry Neurologic: patellar DTR's 2+ bilat, sensation intact Psychiatric: A+Ox3, euthymic affect Principal Diagnosis Left knee osteoarthritis Discharge Exam Left Leg: NVDI, calf SNT, negative sunday sign. DP palpable, able to wiggle toes/ankle movement without difficulty. dressing clean dry and intact. Constitutional well developed and well nourished; no acute distress Discharge Data Allergies Allergy/AdvReac Type Severity Reaction Status Date / Time mold Allergy Unknown STUFFY Verified 10/01/20 07:49 NOSE ITCHY EYES No Known Drug Allergies Allergy Unknown NONE Verified 10/01/20 07:49 Consultations 09/28/20 14:23 Consult Hospitalist Routine 10/01/20 12:55 Consult Case Management - Discharge Planning Routine Procedures Performed Operation Date: 10/01/20 09:20 Actual Procedures p Left Total Knee Arthroplasty(Left) - Graham Mendez MD Ordered Studies 10/01/20 05:00 US - OR guided needle placemen Routine Hospital Course (1) History of total left knee replacement: Patient presented for same day admission following left total knee arth roplasty on 10/01/20. He tolerated procedure well. The Patient had an uneventful hospital course. Post-operatively, his activity was progressed and well tolerated. They participated in PT with ambulation distance of 100 feet x1 and 150 feet x 1. ROM of operative knee reached 100 degrees. Labs remained stable- lowest hemoglobin recorded:13.1. [facility] hospitalist service was consulted for medical management during admission. Pain controlled on oral medications. Please refer to daily progress notes and PT notes for complete details. Hip x-rays were obtained on POD#1 due to incidental finding on post op hip x-rays. Read as benign appearing lesion. After exam on 10/02/20, patient was felt to be stable for discharge home with home health PT. Patient will f/u in the office in about 2 weeks for further evaluation including x-rays and incision check, sooner if having any issues or concerns. POD #1 s/p Left TKA pt/ot dvt proph with ALEA/SCD/ASA plan for d/c home with HHPT, will see how he performs in PT today, discussed having home nurse d/c hemovac tomorrow if needed incidental finding of question deformity of the mid femur, has h/o left hip replacement, will obtain xray left hip/pelvis this am Lab Results 10/01/10/02/20 10/02/20 Range/Units 07:37 05:34 05:34 WBC 15.61 H (4.8-10.8) K/uL RBC 4.45 L (4.7-6.1) M/uL Hgb 13.1 L (14.0-18.0) g/dL Hct 38.3 L (42-52) % MCV 86.1 (80-100) fL MCH 29.4 (25-34) pg MCHC 34.2 (32-36) g/dL RDW Std Deviation 40.2 (36.4-46.3) fL RDW Coeff of Robbin 12.6 (11.5-14.5) % Plt Count 251 (130-400) K/uL MPV 11.3 H (7.4-10.4) fL Sodium 144 (136-145) mmol/L Potassium 4.3 (3.5-5.1) mmol/L Chloride 111 H (98-107) mmol/L Carbon Dioxide 29 (21-32) mmol/L Anion Gap 4.0 (3-11) BUN 23 H (7-18) mg/dl Creatinine 0.84 (0.6-1.4) mg/dl Est Cr Clr Drug Dosing 95.7 ml/min Est GFR ( Amer) 101.4 Est GFR (Non-Af Amer) 87.5 BUN/Creatinine Ratio 27.8 H (10-20) Glucose 111 H (70-99) mg/dl Calcium 8.9 (8.5-10.1) mg/dl Hepatitis C Ab Screen (Neg) Blood Type O Positive Antibody Screen NEGATIVE 10/02/20 Range/Units 05:34 WBC (4.8-10.8) K/uL RBC (4.7-6.1) M/uL Hgb (14.0-18.0) g/dL Hct (42-52) % MCV (80-100) fL MCH (25-34) pg MCHC (32-36) g/dL RDW Std Deviation (36.4-46.3) fL RDW Coeff of Robbin (11.5-14.5) % Plt Count (130-400) K/uL MPV (7.4-10.4) fL Sodium (136-145) mmol/L Potassium (3.5-5.1) mmol/L Chloride (98-107) mmol/L Carbon Dioxide (21-32) mmol/L Anion Gap (3-11) BUN (7-18) mg/dl Creatinine (0.6-1.4) mg/dl Est Cr Clr Drug Dosing ml/min Est GFR ( Amer) Est GFR (Non-Af Amer) BUN/Creatinine Ratio (10-20) Glucose (70-99) mg/dl Calcium (8.5-10.1) mg/dl Hepatitis C Ab Screen Neg (Neg) Blood Type Antibody Screen Total Time Total Time Spent Total Time Spent (In Minutes): 20 Discharge Plan Discharge Items Patient Disposition: Home - Home Health Services Reason For Visit: Osteoarthritis Left Knee Discharge Diagnosis: left total knee replacement Condition on Discharge: Good Activity: Per Instructions section Lifting: Wait until after follow-up appointment Weightbearing Comment: WBAT with walker Non-emergency contact: Surgeon Call non-emergency contact if: you have any medication questions, your temperature is above 101, your wound has increased redness, your wound has increased drainage and your wound pain has increased Follow-up/Referrals: Jonathan Arreguin [Primary Care Provider] - Diet: Regular Addtl Attending Provider Instructions: ACTIVITY RECOMMENDATIONS: SELF CARE INSTRUCTIONS AFTER TOTAL KNEE REPLACEMENT A. You may need to continue a physical therapy program after discharge from the hospital. There are several options available to you. Your doctor will assist you in selecting the best one for you. 1. An out-patient facility 2 to 3 times a week for therapy or home therapy. 2. Continue working on all exercises taught to you in the hospital. Your goals should be to increase bending of your knee to 90 degrees and beyond and to fully straighten your knee. B. You may progress at your own pace from walking with a walker or crutches to a cane; then to no assistive devices. C. Make walking a part of your daily routine. Be up as much as comfortable with rest periods throughout the day. Rest with leg elevation is very important. Use the ice wrap frequently for the first 3-4 weeks. D. There are no restrictions on activities. You may ride in a car, shop, participate in curriculum director and all social activities. E. Wear the long elastic stockings (ALEA hose) 20 hours a day for 2 weeks after surgery. They can be removed several times a day for laundering and for a bath. F. You may shower, no tub baths until cleared by your doctor. SPECIAL CARE INSTRUCTIONS: VERY IMPORTANT TO READ AND REVIEW A. There are a few signs you need to watch for after you are home. Call [facility] if you notice any of the followin. Increased severe knee pain. Some pain is expected especially when you exercise. 2. Increased swelling in your leg or knee; pain or swelling of the calf muscle in either lower leg. 3. Any fluid drainage from the incision. 4. Shortness of breath or chest pain. B. Please call [facility] at if you have any concerns or questions about your operation or recovery. The doctor or his nurse will return your call promptly. C. You must take antibiotics before dental work, bladder, bowel or other surgery. Your doctor will provide you with a permanent care to carry describing this precaution. IMPORTANT: * REMEMBER TO TAKE ASPIRIN, 81 MG, TWICE DAILY FOR 4 WEEKS UNLESS OTHERWISE DIRECTED. THIS IS YOUR BLOOD THINNER. * HIGH RISK PATIENTS MAY BE PRESCRIBED A STRONGER BLOOD THINNER. THIS WILL BE PROVIDED AT DISCHARGE. * CALL IF INCREASED PAIN, REDNESS, DRAINAGE OR FEVER GREATER THAT 101. * WEAR ALEA HOSE 20 HOURS PER DAY FOR 2 WEEKS. * YOU MAY HAVE A LARGE BAND-AID LIKE DRESSING (SILVERON). THIS WILL REMAIN ON YOUR INCISION FOR 7 DAYS, THEN CAN BE REMOVED. IF INCISION IS LEAKING THROUGH DRESSING, CALL THE OFFICE . FOLLOW UP VISIT: If appointment is not already scheduled: Please call [facility] to make a follow-up appointment for 2 weeks after your surgery at . Pending Studies at Discharge: No Stand-Alone Forms: [facility] [employer], Opioid Pain Management, Smoking Cessation Medications and DC Order Prescriptions: New celecoxib [Celebrex] 200 mg Capsule 200 mg PO BID 30 Days Qty: 60 RF: 0 aspirin 81 mg Tablet,Delayed Release (Dr/Ec) 81 mg PO BID 30 Days Qty: 60 RF: 0 acetaminophen 500 mg Tablet 1,000 mg PO Q8 21 Days Qty: 126 RF: 0 oxycodone 5 mg Tablet 5 - 10 mg PO Q6H PRN (Reason: pain) Qty: 30 RF: 0 docusate sodium 100 mg Capsule 100 mg PO BID 10 Days Qty: 20 RF: 0 Continued atorvastatin 40 mg Tablet 40 mg PO PM RF: 0 fexofenadine 180 mg Tablet 180 mg PO QAM RF: 0 amlodipine 10 mg Tablet 10 mg PO QAM RF: 0 hydrochlorothiazide 12.5 mg Capsule 12.5 mg PO QAM RF: 0 atenolol 50 mg Tablet 50 mg PO QAM RF: 0 ascorbic acid (vitamin C) [Vitamin C] 500 mg Tablet Extended Release 500 mg PO BID RF: 0 ezetimibe 10 mg Tablet 10 mg PO PM RF: 0 vitamin E 400 unit Capsule 400 unit PO QPM RF: 0 omega 1-cac-lyr-fish oil [Fish Oil] 1,200 (144-216) mg Capsule 1,200 cap PO BID RF: 0 Discontinued meloxicam 15 mg Tablet 15 mg PO QAM RF: 0 aspirin [Aspir-81] 81 mg Tablet,Delayed Release (Dr/Ec) 81 mg PO QPM RF: 0 acetaminophen [Tylenol Extra Strength] 500 mg Capsule 1,000 mg PO BID RF: 0 coQ10 (ubiquinol) 100 mg Capsule 100 mg PO QAM RF: 0 Discharge Orders: Discharge Order (Routine); Ordered 10/02/20 Ordered By: João Hays Admission Data Admit Date/Time: 10/01/20 11:47 Attending Provider: Graham Mendez Admit Provider: Graham Mendez Primary Care Provider: Jonathan Arreguin Other Providers: Alec Diamond Other Interventions: Discharge Summary Assessment (RN) Last Done: 10/02/20 14:19
== END 2020-10-02 15:48 | disposition home health service (06) ==
LOC: ASU 07:17 → 3E 07:17 → OBSVTOIN 11:47

== ENCOUNTER 2020-12-28 06:44 | Inpatient (IN) ==
--- NOTE | 2020-12-09 09:31 | Anesthesiology Consultation ---
Date of Service December 09, 2020 Assessment & Plan (1) Encounter for pre-operative examination: - COVID screening: Per assessment on 12/09: Travel screen negative, no known COVID-19 positive contacts or current COVID-19 related symptoms. Surgeon arranging preop COVID testing (scheduled 12/23; DC). Awaiting results. - S/P Left TKA (10/01/20): SAB at L4-L5 + PNB at [facility] Chart Review Chart Review: Acceptable Risk for Surgery and Patient NOT seen in Pre Admission Testing History Surgery Operation Date: 12/28/20 09:25 Proposed Procedures p Right Total Knee Arthroplasty - Graham Mendez MD Height/Weight Height: 5 ft 10 in Weight: 99.79 kg Allergies Allergy/AdvReac Type Severity Reaction Status Date / Time mold Allergy Unknown Congestion, Verified 12/09/20 09:28 itchy eyes No Known Drug Allergies Allergy Unknown NONE Verified 12/09/20 08:03 Medications Home Medications Medication Instructions Recorded Confirmed Last Taken amlodipine 10 mg PO QAM 06/27/20 12/09/20 10/01/20 05:00 ascorbic acid (vitamin C) [Vitamin 500 mg PO BID 06/27/20 12/09/20 09/25/20 C] atenolol 50 mg PO QAM 06/27/20 12/09/20 10/01/20 05:00 atorvastatin 40 mg PO PM 06/27/20 12/09/20 09/30/20 18:00 ezetimibe 10 mg PO PM 06/27/20 12/09/20 09/30/20 18:00 fexofenadine 180 mg PO QAM 06/27/20 12/09/20 1 Week Ago ~09/24/20 hydrochlorothiazide 12.5 mg PO QAM 06/27/20 12/09/20 1 Week Ago ~09/24/20 omega 4-ezq-rov-fish oil [Fish Oil] 1,200 cap PO BID 06/27/20 12/09/20 1 Week Ago ~09/24/20 vitamin E 400 unit PO QPM 06/27/20 12/09/20 2 Weeks Ago ~09/17/20 oxycodone 5 - 10 mg PO Q6H PRN #30 tab 10/02/20 12/09/20 Unknown Past Medical History Medical History Bifascicular block Chronic, dating back to 2017 EKG- subsequent ECHO Enlarged prostate Hyperlipidemia Hypertension Obesity Sleep apnea CPAP Past Family History Family History Grandmother (Paternal) Family history of diabetes mellitus Past Surgical History Surgical History History of cardiac cath 15+ years ago ([facility]) > no stents History of colonoscopy x3 History of total hip arthroplasty Left History of total left knee replacement Left TKA (10/01/20): SAB at L4-L5 + PNB at [facility] History of total shoulder replacement Right Social History Smoking Status: Light tobacco smoker tobacco type: cigars Smoking cigarettes per day: 1-2 CIGAR PER DAY MOST DAYS Do You Dip or Chew Tobacco: No Hx Alcohol Use: Yes Alcohol type: beer alcohol intake frequency: a few times a month Hx Substance Use: No substance use type: does not use Testing Laboratory Results 12/07/20 WBC 6.61 H/H 14.9/46.0 PLATELETS 269 SODIUM 141 POTASSIUM 4.0 CHLORIDE 107 CO2 30.0 BUN 21.8 CREATININE 0.77 GLUCOSE 95 PT 10.8 PTT 30.4 INR 0.99 HGBA1C 5.2% UA negative (no growth on culture) Electrocardiogram Date: 09/16/20 Sinus rhythm with sinus arrhythmia at 57 bpm. Abnormal left axis deviation. Right bundle branch block. Minimal voltage criteria for LVH may be normal variant. Chest X-Ray Date: 07/01/20 Findings: + NAD and + cardiomegaly (mild) There is mild elevation of the right hemidiaphragm. Echocardiogram Date: 07/26/17 EF: 55-60% LV Function: normal RWMA: + none Other Findings: + LVH (borderline/concentric ) Valvular Disease: + no significant valvular disease Mild aortic root dilation. Mild dilated ascending aorta.
--- NOTE | 2020-12-26 18:46 | History & Physical Report ---
Date of Service December 26, 2020 Assessment & Plan (1) Primary osteoarthritis of right knee: Treatment options discussed with patient. He has failed conservative measures as above. Risks, benefits and alternatives to surgery including but not limited to infection, DVT, pain, stiffness, need for revision surgery, damage to blood vessels, damage to nerves, PE, , were discussed with the patient and they wish to proceed. Plan will be for right total knee arthroplasty at [facility] on 12/28/[address] Mendez. DVT prophylaxis will be ASA 81mg BID x 1 mo. Will plan on HHPT post discharge from the hospital. All questions answered. He will follow up post operatively. History of Present Illness Chief Complaint: Right knee pain Primary Care Provider: Jonathan Arreguin 70 year old male with PMHx significant for HTN, high cholesterol, SUKUMAR, BPH who has long standing right knee pain. He has failed conservative measures including anti-inflammatories, cortisone, and viscoelastic injections. Pain is interfering with his daily activities. He would like to proceed with right knee replacement. Previously has had left knee replaced and has done well. Patient denies headaches, sweats, fevers, chills, double vision, blurred vision, cough, sore throat, dysphagia, chest pain, sob, wheezing, n/v/d/c, numbness, tingling, fatigue, urinary symptoms, mood disorders. ROS positive for right knee pain and stiffness. Allergies Allergy/AdvReac Type Severity Reaction Status Date / Time mold Allergy Unknown Congestion, Verified 12/09/20 09:28 itchy eyes No Known Drug Allergies Allergy Unknown NONE Verified 12/09/20 08:03 Home Medications Medication Instructions Recorded Confirmed Type amlodipine 10 mg PO QAM 06/27/20 12/09/20 History ascorbic acid (vitamin C) [Vitamin 500 mg PO BID 06/27/20 12/09/20 History C] atenolol 50 mg PO QAM 06/27/20 12/09/20 History atorvastatin 40 mg PO PM 06/27/20 12/09/20 History ezetimibe 10 mg PO PM 06/27/20 12/09/20 History fexofenadine 180 mg PO QAM 06/27/20 12/09/20 History hydrochlorothiazide 12.5 mg PO QAM 06/27/20 12/09/20 History omega 6-kra-hum-fish oil [Fish Oil] 1,200 cap PO BID 06/27/20 12/09/20 History vitamin E 400 unit PO QPM 06/27/20 12/09/20 History oxycodone 5 - 10 mg PO Q6H PRN #30 tab 10/02/20 12/09/20 Rx Past Med/Surg History Medical History Bifascicular block Chronic, dating back to 2016 EKG- subsequent ECHO Enlarged prostate Hyperlipidemia Hypertension Obesity Sleep apnea CPAP Surgical History History of cardiac cath 15+ years ago ([facility]) > no stents History of colonoscopy x3 History of total hip arthroplasty Left History of total left knee replacement Left TKA (10/01/20): SAB at L4-L5 + PNB at [facility] History of total shoulder replacement Right Family History Grandmother (Paternal) Family history of diabetes mellitus Social History Smoking Status: Light tobacco smoker Cigarettes Per Day: 1-2 CIGAR PER DAY MOST DAYS; Second Hand Exposure: Yes (as kid); Hx Alcohol Use: Yes Alcohol type: beer Hx Substance Use: No Preferred Language: Irish Communication Ability: Effective Python Django Developer Required: No Beliefs That Will Affect Care: None marital status: Current Living Situation: Spouse Feels Safe at Home: Yes Assistive Devices: CPAP and Glasses Review of Systems All systems reviewed & are unremarkable except as noted in HPI & below Physical Exam Constitutional: well developed and well nourished; no acute distress Eyes: PERRL, conjunctivae normal, anicteric sclerae ENMT: external ear and nose normal, oropharynx normal Neck: trachea midline, no thyromegaly Respiratory: normal respiratory effort, lungs clear to auscultation Cardiovascular: RRR, no murmur, no edema Musculoskeletal: Right knee: Tenderness medial joint line. ROM 0-135 with crepitation. Stable to valgus and varus stress test. Varus alignment. Positive Anna's Skin: no rashes, warm and dry Neurologic: patellar DTR's 2+ bilat, sensation intact Psychiatric: A+Ox3, euthymic affect Results & Data ([facility]) Diagnostic Findings Right knee: Varus alignment. Bone on bone medial compartment with periarticular osteophyte formation and subchondral sclerosis.
[2020-12-28] MEDS ORDERED: BUPIVACAINE 0.5 % 5 MG/1 ML PF 10ML VIAL ONE (07:37)
[2020-12-28] MEDS ORDERED: ROPIVACAINE 0.5% 5 MG/ML 30 ML VIAL ONE (07:37)
[2020-12-28] MEDS ORDERED: PROPOFOL IV EMULSION 10 MG/ML 20 ML VIAL IV ONE ×4 (08:20→12:08)
[2020-12-28] MEDS ORDERED: fentaNYL citrate 100 MCG/2 ML VIAL ONE (08:20)
[2020-12-28] MEDS ORDERED: MIDAZOLAM HCL 1 MG/ML 2ML VIAL ONE (08:20)
[2020-12-28] MEDS ORDERED: fentaNYL citrate 100 MCG/2 ML VIAL IV PRN (08:41)
[2020-12-28] MEDS ORDERED: ePHEDrine sulfate 50 MG/ML AMP IV PRN (08:41)
[2020-12-28] MEDS ORDERED: ATROPINE SULFATE 0.1 MG/ML 10ML SYR IV PRN (08:41)
[2020-12-28] MEDS ORDERED: HYDROmorphone INJ 2 MG/ML SYR/VIAL IV PRN (08:41)
--- NOTE | 2020-12-28 09:49 | History & Physical Bridge Note ---
Date of Service December 28, 2020 History & Physical Bridge Note I have examined the patient, reviewed the History & Physical and in the interval since the performance of the History & Physical I have noted the following changes of clinical significance: no changes noted
[2020-12-28] MEDS ORDERED: ORTHO JOINT ANESTHETIC ONE (09:51)
--- NOTE | 2020-12-28 12:31 | Operative Report ---
Post Operative Report Pre & Post Diagnosis Operation Date: 12/28/20 09:35 Pre-Op Diagnosis: Unilateral Primary Osteoarthritis Right Knee Post-Op Diagnosis: Unilateral Primary Osteoarthritis Right Knee, chronic scarred prepatellar bursitis. I identified the patient and participated in the time-out.: Yes Procedure Operation Date: 12/28/20 09:35 Actual Procedures p Right Total Knee Arthroplasty(Right), excision prepatellar bursa, superficial wound VAC- Graham Mendez MD Surgeon Graham Mendez MD Rehab Consultant Mike HUNT Estimated Blood Loss 5 Findings Consistent with Post-Op Diagnosis Specimens Bone cuts Drains 2 Hemovac Anesthesia Type MAC Spinal Regional Complications none Disposition Accompanied Patient To Recovery: No Disposition: Recovery Room Indications 68-year-old male with chronic progressive osteoarthritis in his right knee. Patient has failed conservative management. Patient has a varus knee and patellofemoral osteoarthritis. Patient is [id number] medial compartment on flexion weightbearing views. Patient had recent successful left total knee replacement. Description of Procedure Patient was taken to the operating room placed supine on the operating table and anesthetized under spinal MAC regional anesthesia. Exam under anesthesia demonstrated laxity lateral collateral ligament tight medial compartment with no pseudolaxity flexion contracture 15 degrees. A pneumatic tourniquet was placed about the thigh of the right lower extremity. The right lower extremity was prepped and draped in usual fashion. The leg was elevated exsanguinated with an Esmarch bandage and the pneumatic was raised to 325 mm mercury. An anterior incision was made across the right knee. There was chronic scarred thickened prepatellar bursitis with scarred bands of bursal tissue coursing across the prepatellar bursa. This thickened prepatellar bursa tissue and scar tissue was resected. Subcutaneous flaps were developed to expose the quadriceps and extensor mechanism. Deep incision was made through the medial retinaculum extending up into the mid third of the quadriceps tendon and down to the medial tibial tubercle. Intra-articular findings demonstrated patellofemoral medial compartment osteoarthritis. [id number] medial compartment with eburnation. Grade 4 trochlear groove osteoarthritis grade 2 patella chondromalacia. The knee was exposed by excising the infrapatellar fat pad, excising the meniscal remnants and anterior cruciate ligament. Any inflamed synovial tissue was resected. The fat pad over the anterior femur was resected for placement of the component in that area. The lateral synovial bands were release. The femur was exposed. The custom femoral cutting block was pinned in position. The distal femoral cutting block was applied. The distal femoral cut was made with the oscillating saw. The size 12, 4-in-1 cutting block was placed. The anterior and posterior chamfer cuts were made. The knee was extended and a subperiosteal peel lateral release was performed around the patella. The patella width was measured and width was reproduced using freehand cut technique. The 35 x 9 mm millimeter symmetrical patella was used. 3 drill holes are made for the pegs. The tibia was exposed. A custom tibial cutting block was positioned and drill holes were made for the cutting guide. Cutting guide was placed and the proximal cut was made with the oscillating saw. All osteophytes were resected. The lamina consultant dietitian was used to assess ligamentous balance and the ligaments were balanced in extension and flexion. This required a medial posterior medial release and minor pie crusting MCL. The tibia was reexposed and measured for a size H tibial component. This was externally rotated in line with the tibial tubercle and the fixation pins were drilled. The proximal tibia was fashioned with the drill and punch. The size 12 right CR femoral trial was inserted. The trial MC inserts were used. The 13 mm insert gave balanced ligaments through full range of motion. The patella tracked centrally. the trials were removed. The orthomix anesthetic cocktail was injected per protocol. The knee was then copiously irrigated with pulsatile lavage antibiotic solution with bacitracin. The final components were cemented with Simplex cement. The final components were [employer] persona size 12 right CR femoral component, H right tibial component, 13 MC right tibial polyethylene, 35 x 9 mm symmetrical patella.. After the cement cured with the knee in full extension the Betadine soak was used per protocol. The knee joint was copiously irrigated with pulsatile lavage saline solution. 2 drains were brought out laterally and connected to a Hemovac. The quadriceps tendon and medial retinaculum were closed with interrupted [id number] #1 Vicryl sutures. The knee was taken through a full range of motion and repair was secure. The subcutaneous tissues were closed with 2-0 Vicryl sutures and skin was closed with shweta. Marilu and Acticoat superficial wound VAC was applied and the patient tolerated the procedure well. Mike HUNT my physician assistant clinical director, assisted in soft tissue retraction instrument management leg positioning the closure application of superficial wound VAC and will participate in the postoperative care of the patient. I attest to the content of the Intraoperative Record and any orders documented therein. Any exceptions are noted below.
--- NOTE | 2020-12-28 13:11 | XRay Report ---
XR knee RT 1 or 2V routine CLINICAL HISTORY: Surgical Post Op COMPARISON: None. DISCUSSION: There are postsurgical changes of a total right knee arthroplasty and patellar resurfacin g. There are overlying skin shweta and surgical drains. There is gas within soft tissues consistent with recent surgery. The femoral tibial components appear well seated. IMPRESSION: Postsurgical changes of a total right knee arthroplasty. ACT 112: Negative or not required by law. Electronically signed by: Karl Walters M.D. 12/28/2020 1:10 PM
[2020-12-28] MEDS ORDERED: METOCLOPRAMIDE HCL INJ 5 MG/ML 2 ML VIAL IV PRN (13:13)
[2020-12-28] MEDS ORDERED: ONDANSETRON INJ 2 MG/ML 2 ML VIAL IV PRN (13:13)
[2020-12-28] MEDS ORDERED: NALOXONE HCL 0.4 MG/1 ML VIAL/CARP IV PRN (13:13)
[2020-12-28] MEDS ORDERED: MAGNESIUM HYDROXIDE SUSP 30 ML UDC PO PRN (13:13)
[2020-12-28] MEDS ORDERED: oxyCODONE HCL IR 5 MG TAB (IMMEDIATE RELEASE) PO PRN (13:13)
[2020-12-28] MEDS ORDERED: bisacodyL 10 MG SUPP PR PRN (13:13)
[2020-12-28] MEDS ORDERED: HYDROmorphone INJ 0.5 MG/0.5 ML SYR IV PRN (13:13)
[2020-12-28] MEDS ORDERED: TAMSULOSIN HCL 0.4 MG CAP PO PRN (13:13)
--- NOTE | 2020-12-28 13:53 | Anesthesiology Progress Note ---
Date of Service December 28, 2020 Anesthesia Post Procedure Vital Signs Vital Signs: Temp Pulse Pulse Resp BP Pulse Ox 12/28/20 13:47 51 L 16 144/79 H 96 12/28/20 13:31 36.4 C L 50 L 18 138/77 95 12/28/20 13:00 36.5 C 52 L 15 132/76 94 12/28/20 12:50 51 L 17 133/68 99 12/28/20 12:40 51 L 11 L 107/83 99 12/28/20 12:32 36.5 C 59 L 14 113/66 99 12/28/20 07:50 36.5 C 54 L 18 167/93 H 98 Transfer of Care Handoff Completed per policy Notes Mental Status: alert / awake / arousable and participated in evaluation Patient Amnestic to Procedure: Yes Nausea / Vomiting: adequately controlled Pain: adequately controlled Airway Patency, RR, SpO2: stable & adequate BP & HR: stable & adequate Hydration State: stable & adequate Neuraxial Anesthesia: was administered and sensory block is resolving Anesthetic Complications: no major complications apparent
[2020-12-28] MEDS: SODIUM CHLORIDE 0.9% 1000ML 1,000 ML IV SCH ×2 (14:10→22:03)
[2020-12-28] MEDS: ACETAMINOPHEN 500 MG TAB PO SCH ×2 (14:11→22:01)
[2020-12-28] MEDS: ceFAZolin 2000MG 2,000 MG/15 ML SYR IV SCH (17:47)
[2020-12-28] MEDS: SENNA 8.6 MG TAB PO SCH (22:01)
[2020-12-28] MEDS: EZETIMIBE 10 MG TABLET PO SCH (22:02)
[2020-12-28] MEDS: ASPIRIN 81 MG ECTAB PO SCH (22:02)
[2020-12-28] MEDS: DOCUSATE SODIUM 100 MG CAP PO SCH (22:02)
[2020-12-28] MEDS: CeleBREX 200 MG CAP PO SCH (22:02)
[2020-12-28] MEDS: TOCOPHERYL, DL-ALPHA 400 UNITS 180 MG CAP PO SCH (22:02)
[2020-12-28] MEDS: ATORVASTATIN 40 MG TAB PO SCH (22:03)
[2020-12-28] MEDS: ASCORBIC ACID 500 MG TAB PO SCH (22:03)
[2020-12-29] MEDS: ceFAZolin 2000MG 2,000 MG/15 ML SYR IV SCH (01:57)
[2020-12-29] MEDS: ACETAMINOPHEN 500 MG TAB PO SCH ×3 (05:30→21:48)
[2020-12-29 06:34] LABS: Hematocrit (blood only) 38.6 % (42-52); Hemoglobin 12.9 g/dL (14.0-18.0); Mean Corpuscular Hemoglobin 28.8 pg (25-34); Mean Corpuscular Hgb Conc 33.4 g/dL (32-36); Mean Corpuscular Volume 86.2 fL (80-100); Mean Platelet Volume 11.3 fL (7.4-10.4); Platelet Count 240 K/uL (130-400); RDW Coefficient of Variation 12.6 % (11.5-14.5); RDW Standard Deviation 40.3 fL (36.4-46.3); Red Blood Count 4.48 M/uL (4.7-6.1); White Blood Count 13.39 K/uL (4.8-10.8)
[2020-12-29 07:04] LABS: BUN Creatinine Ratio 36.8 (10-20); Calcium 8.9 mg/dl (8.5-10.1); Creatinine Clr Calc Pharmacy 105.2 ml/min; Est GFR (African American) 106.2 ml/min; Est GFR (Non-African American) 91.6 ml/min; Potassium 3.7 mmol/L (3.5-5.1)
--- NOTE | 2020-12-29 07:37 | Orthopedic Progress Note ---
Date of Service December 29, 2020 Assessment & Plan (1) Primary osteoarthritis of right knee: POD#1 Right TKA -Pain management as written -DVT prophylaxis-SCDs, TEDs, ASA 81mg BID -PT/OT -AM labs-hemoglobin at 12.9 from 13.1 preop. Mild leukocytosis likely surgical stress/reactive -D/C planning-home with HHPT possibly later today if PT goes well and drain output has decreased. Could consider discharge with drain in place for home health to remove vs discharge tomorrow if drain output is till too high Admission and Anticipated Discharge Date Admission Date: December 28, 2020 Subjective POD#1 right TKA. Doing well, not having any pain. Denies fever, chills, chest pain, sob, dizziness, headache, n/v/d Review of Systems Review of Systems: All systems reviewed & are unremarkable except as noted in Subjective Physical Exam Physical Exam: Right knee dressing is c/d/i, no calf tenderness, hemoac on suction. Toes mobile with good dorsiflexion. Distally n/v status and sensation intact. Constitutional: well developed and well nourished; no acute distress Results & Data ([facility]) Vital Signs (Past 12 Hours) Vital Signs Temp Pulse Resp BP BP Pulse Ox 12/29/20 07:29 36.9 C 78 18 108/65 93 12/29/20 03:20 36.5 C 55 L 16 143/76 H 97 12/29/20 00:06 36.4 C L 52 L 18 130/77 96 Laboratory Results Lab Results 12/28/20 12/28/20 12/28/20 Range/Units 07:39 07:39 08:20 WBC (4.8-10.8) K/uL RBC (4.7-6.1) M/uL Hgb (14.0-18.0) g/dL Hct (42-52) % MCV (80-100) fL MCH (25-34) pg MCHC (32-36) g/dL RDW Std Deviation (36.4-46.3) fL RDW Coeff of Robbin (11.5-14.5) % Plt Count (130-400) K/uL MPV (7.4-10.4) fL Sodium (136-145) mmol/L Potassium (3.5-5.1) mmol/L Chloride (98-107) mmol/L Carbon Dioxide (21-32) mmol/L Anion Gap (3-11) BUN (7-18) mg/dl Creatinine (0.6-1.4) mg/dl Est Cr Clr Drug Dosing ml/min Est GFR ( Amer) ml/min Est GFR (Non-Af Amer) ml/min BUN/Creatinine Ratio (10-20) Glucose (70-99) mg/dl Calcium (8.5-10.1) mg/dl COVID-19 Eval Order Covid19 IDNow [facility] Hepatitis C Ab Screen Neg (Neg) SARS-CoV-2, RNA, NAAT (NEGATIVE) Blood Type O Positive Antibody Screen NEGATIVE 12/28/20 12/29/20 12/29/20 Range/Units 08:20 05:56 05:56 WBC 13.39 H (4.8-10.8) K/uL RBC 4.48 L (4.7-6.1) M/uL Hgb 12.9 L (14.0-18.0) g/dL Hct 38.6 L (42-52) % MCV 86.2 (80-100) fL MCH 28.8 (25-34) pg MCHC 33.4 (32-36) g/dL RDW Std Deviation 40.3 (36.4-46.3) fL RDW Coeff of Robbin 12.6 (11.5-14.5) % Plt Count 240 (130-400) K/uL MPV 11.3 H (7.4-10.4) fL Sodium 143 (136-145) mmol/L Potassium 3.7 (3.5-5.1) mmol/L Chloride 111 H (98-107) mmol/L Carbon Dioxide 27 (21-32) mmol/L Anion Gap 6.0 (3-11) BUN 28 H (7-18) mg/dl Creatinine 0.75 (0.6-1.4) mg/dl Est Cr Clr Drug Dosing 105.2 ml/min Est GFR ( Amer) 106.2 ml/min Est GFR (Non-Af Amer) 91.6 ml/min BUN/Creatinine Ratio 36.8 H (10-20) Glucose 112 H (70-99) mg/dl Calcium 8.9 (8.5-10.1) mg/dl COVID-19 Eval Order Hepatitis C Ab Screen (Neg) SARS-CoV-2, RNA, NAAT NEGATIVE (NEGATIVE) Blood Type Antibody Screen
[2020-12-29] MEDS ORDERED: LACTATED RINGER'S 1,000 ML IV SCH (08:30)
--- NOTE | 2020-12-29 08:30 | Hospitalist Consultation ---
Date of Consultation December 29, 2020 Assessment & Plan (1) Primary osteoarthritis of right knee: POD#[address] Mendez. EBL 5cc. Pre-op hgb 13.1 --> 12.9 -- acute blood loss from surgery PT/OT/pain management per primary service Hemovac with 500cc output thus far DVT prophylaxis with SCDs, Teds, ASA 81mg BID Plans for home with drain vs staying overnight pending PT evals today -- discussed with ortho and will keep overnight and plan for d/c in am (2) BPH w urinary obs/LUTS: Hilario alexo at home, Started on tadalafil at most recent Urology visit. PSA was elevated at 4.07 (stable given age) Flomax prn Rec f/u with Urology at d/c (3) Hypertension: BP elevated 151/82 Continue atenolol 50 mg daily, amlodipine 10mg, HCTZ 12.5mg daily --Will hold morning HCTZ given dehydration on labs and patient can resume in AM. Also provide 1L IVF Monitor (4) Hyperlipidemia: continue atorvastatin 40mg HS, ezetimibe 10mg (5) Sleep apnea: CPAP HS DVT Prophylaxis SCDs, TEDs, ASA 81mg BID Dispo: likely d/c tomorrow with HHPT Thank you for allowing hospitalist to participate in the care of Mr Shanks. Hospitalist service will chart check in am. Please call with any questions/concerns. History of Present Illness Reason for Consultation: medical management Requesting Physician: Dr Mendez Attending Physician: Graham Mendez MD History of Present Illness 70yo male with PMHx significant for HTN, HLD, SUKUMAR, BPH with LUTS and recent L TKA in September [address] Mendez presented for a RIGHT TKA with Dr. Mendez. Doing well post-operatively. Pain controlled. Numbness yesterday has since resolved. Eating/drinking without issue. Voiding without difficulty. Passing gas but no BM -- he utilizes Metamucil at home and also has stool softeners. He states in September it took him a couple days to get his bowels moving. No pain. Did have BM yesterday AM prior to surgery. Decent amount out of Hemovac and decision to keep vs d/c and drain removal with home health. Discussed holding HCTZ and giving some IVF but would like to keep overnight if ok with surgery to ensure stable CBC. He states he had held HCTZ in the past but did not hold this time. He has his CPAP machine and is faithful about use -- states he would not go anywhere without it, "best thing besides my and kids." No fever, chills, chest pain, shortness of breath, abdominal pain, nausea, vomiting or dysuria at this time. Plans on therapy at discharge in [facility]. Allergies Allergy/AdvReac Type Severity Reaction Status Date / Time mold Allergy Unknown Congestion, Verified 12/28/20 07:16 itchy eyes No Known Drug Allergies Allergy Unknown NONE Verified 12/28/20 07:16 Home Medications Medication Instructions Recorded Confirmed Type amlodipine 10 mg PO QAM 06/27/20 12/28/20 History ascorbic acid (vitamin C) [Vitamin 500 mg PO BID 06/27/20 12/28/20 History C] atenolol 50 mg PO QAM 06/27/20 12/28/20 History atorvastatin 40 mg PO PM 06/27/20 12/28/20 History ezetimibe 10 mg PO PM 06/27/20 12/28/20 History fexofenadine 180 mg PO QAM 06/27/20 12/28/20 History hydrochlorothiazide 12.5 mg PO QAM 06/27/20 12/28/20 History omega 0-pxq-vpp-fish oil [Fish Oil] 1,200 cap PO BID 06/27/20 12/28/20 History vitamin E 400 unit PO QPM 06/27/20 12/28/20 History oxycodone 5 - 10 mg PO Q6H PRN #30 tab 10/02/20 12/28/20 Rx acetaminophen 1,000 mg PO Q8 #60 tab 12/29/20 Rx aspirin 81 mg PO BID #60 tab 12/29/20 Rx celecoxib [Celebrex] 200 mg PO BID #60 cap 12/29/20 Rx oxycodone 5 - 10 mg PO .Q4h-6h PRN #30 tab 12/29/20 Rx MDD 6 Patient History Medical History Bifascicular block Chronic, dating back to 2016 EKG- subsequent ECHO Enlarged prostate Hyperlipidemia Hypertension Obesity Sleep apnea CPAP Surgical History History of cardiac cath 15+ years ago ([facility]) > no stents History of colonoscopy x3 History of total hip arthroplasty Left History of total left knee replacement Left TKA (10/01/20): SAB at L4-L5 + PNB at [facility] History of total shoulder replacement Right Family History Grandmother (Paternal) Family history of diabetes mellitus Social History Smoking Status: Light tobacco smoker Cigarettes Per Day: 1-2 CIGAR PER DAY MOST DAYS; Second Hand Exposure: No; Do You Dip or Chew Tobacco: No; Tobacco Cessation Education Requested by Patient: No Hx Alcohol Use: Yes Alcohol type: beer Hx Substance Use: No Preferred Language: Sami Communication Ability: Effective Parts Product Analyst Required: No Beliefs That Will Affect Care: None marital status: Current Living Situation: Spouse Other Information That Helps Us Care for You: No Feels Safe at Home: Yes Safety Concerns: Feels Safe At This Time Assistive Devices: CPAP, Glasses and Walker Review of Systems Review of Systems: All systems reviewed & are unremarkable except as noted in HPI & below Physical Exam Constitutional: WD/WN, vitals as above cooperative and comfortable; no acute distress Eyes: + anicteric sclerae and PERRL ENMT: Ears: no hearing impairment Neck: normal visual inspection and trachea midline Respiratory: normal respiratory effort, lungs clear to auscultation Cardiovascular: RRR, no murmur, no edema Gastrointestinal (Abdomen): normal bowel sounds, soft, nontender, no hepatosplenomegaly Musculoskeletal: dressing to RIGHT knee c/d/i with ELISEO wrap and ice pack. Hemovac bloody drainage NVI pulses palpable bilaterally calves non-tender to palpation Skin: no rashes, warm and dry Neurologic: patellar DTR's 2+ bilat, sensation intact Psychiatric: A+Ox3, euthymic affect Lymphatic: no cervical or axillary lymphadenopathy Results & Data Results & Data ([facility]) Vital Signs (Past 12 Hours) Vital Signs Temp Pulse Resp BP BP Pulse Ox 12/29/20 08:02 36.8 C 60 19 151/82 H 97 12/29/20 07:29 36.9 C 78 18 108/65 93 12/29/20 03:20 36.5 C 55 L 16 143/76 H 97 12/29/20 00:06 36.4 C L 52 L 18 130/77 96 Laboratory Results 12/29/20 12/29/20 12/28/20 Range/Units 05:56 05:56 08:20 WBC 13.39 H (4.8-10.8) K/uL RBC 4.48 L (4.7-6.1) M/uL Hgb 12.9 L (14.0-18.0) g/dL Hct 38.6 L (42-52) % MCV 86.2 (80-100) fL MCH 28.8 (25-34) pg MCHC 33.4 (32-36) g/dL RDW Std Deviation 40.3 (36.4-46.3) fL RDW Coeff of Robbin 12.6 (11.5-14.5) % Plt Count 240 (130-400) K/uL MPV 11.3 H (7.4-10.4) fL Sodium 143 (136-145) mmol/L Potassium 3.7 (3.5-5.1) mmol/L Chloride 111 H (98-107) mmol/L Carbon Dioxide 27 (21-32) mmol/L Anion Gap 6.0 (3-11) BUN 28 H (7-18) mg/dl Creatinine 0.75 (0.6-1.4) mg/dl Est Cr Clr Drug Dosing 105.2 ml/min Est GFR ( Amer) 106.2 ml/min Est GFR (Non-Af Amer) 91.6 ml/min BUN/Creatinine Ratio 36.8 H (10-20) Glucose 112 H (70-99) mg/dl Calcium 8.9 (8.5-10.1) mg/dl Hepatitis C Ab Screen (Neg) SARS-CoV-2, RNA, NAAT NEGATIVE (NEGATIVE) Blood Type Antibody Screen 12/28/20 12/28/20 Range/Units 07:39 07:39 WBC (4.8-10.8) K/uL RBC (4.7-6.1) M/uL Hgb (14.0-18.0) g/dL Hct (42-52) % MCV (80-100) fL MCH (25-34) pg MCHC (32-36) g/dL RDW Std Deviation (36.4-46.3) fL RDW Coeff of Robbin (11.5-14.5) % Plt Count (130-400) K/uL MPV (7.4-10.4) fL Sodium (136-145) mmol/L Potassium (3.5-5.1) mmol/L Chloride (98-107) mmol/L Carbon Dioxide (21-32) mmol/L Anion Gap (3-11) BUN (7-18) mg/dl Creatinine (0.6-1.4) mg/dl Est Cr Clr Drug Dosing ml/min Est GFR ( Amer) ml/min Est GFR (Non-Af Amer) ml/min BUN/Creatinine Ratio (10-20) Glucose (70-99) mg/dl Calcium (8.5-10.1) mg/dl Hepatitis C Ab Screen Neg (Neg) SARS-CoV-2, RNA, NAAT (NEGATIVE) Blood Type O Positive Antibody Screen NEGATIVE Diagnostic Findings Knee X-Ray 12/28/20 12:37 XR knee RT 1 or 2V routine CLINICAL HISTORY: Surgical Post Op COMPARISON: None. DISCUSSION: There are postsurgical changes of a total right knee arthroplasty and patellar resurfacing. There are overlying skin shweta and surgical drains. There is gas within soft tissues consistent with recent surgery. The femoral tibial components appear well seated. IMPRESSION: Postsurgical changes of a total right knee arthroplasty. ACT 112: Negative or not required by law. Electronically signed by: Karl Walters M.D. 12/28/2020 1:10 PM PG Care Time/CCT Total # of Minutes Spent Total Time Spent with Patient: Total time spent is greater than 50% in coordination of care (as documented) at patient's floor/unit and/or counseling patient: Coding Level of Care Code 63391 Office/OBS Consult Lvl 3 Diagnoses Primary osteoarthritis of right knee M17.11 BPH w urinary obs/LUTS N40.1; N13.8 Hypertension I10 Hyperlipidemia E78.5 Sleep apnea G47.30
[2020-12-29] MEDS: ASCORBIC ACID 500 MG TAB PO SCH ×2 (08:41→20:41)
[2020-12-29] MEDS: amLODIPine BESYLATE 5 MG TAB PO SCH (08:41)
[2020-12-29] MEDS: CeleBREX 200 MG CAP PO SCH (08:42)
[2020-12-29] MEDS: FEXOFENADINE HCL 180 MG TAB PO SCH (08:42)
[2020-12-29] MEDS: ATENOLOL 50 MG TABLET PO SCH (08:42)
[2020-12-29] MEDS: MULTIVITAMIN TAB PO SCH (08:42)
[2020-12-29] MEDS: DOCUSATE SODIUM 100 MG CAP PO SCH ×2 (08:42→20:37)
[2020-12-29] MEDS: ASPIRIN 81 MG ECTAB PO SCH ×2 (08:42→20:40)
[2020-12-29] MEDS ORDERED: hydroCHLOROthiazide 25 MG TAB PO SCH (09:00)
[2020-12-29] MEDS: POLYETHYLENE (MIRALAX) 17 GM PACK PO SCH (17:12)
[2020-12-29] MEDS: ATORVASTATIN 40 MG TAB PO SCH (20:37)
[2020-12-29] MEDS: EZETIMIBE 10 MG TABLET PO SCH (20:39)
[2020-12-29] MEDS: SENNA 8.6 MG TAB PO SCH (20:40)
[2020-12-29] MEDS: TOCOPHERYL, DL-ALPHA 400 UNITS 180 MG CAP PO SCH (20:40)
[2020-12-30] MEDS: ACETAMINOPHEN 500 MG TAB PO SCH (05:42)
[2020-12-30 06:06] LABS: Hematocrit (blood only) 39.6 % (42-52); Hemoglobin 13.1 g/dL (14.0-18.0); Mean Corpuscular Hemoglobin 29.4 pg (25-34); Mean Corpuscular Hgb Conc 33.1 g/dL (32-36); Platelet Count 241 K/uL (130-400); RDW Coefficient of Variation 13.1 % (11.5-14.5); RDW Standard Deviation 42.7 fL (36.4-46.3); Red Blood Count 4.45 M/uL (4.7-6.1); White Blood Count 9.73 K/uL (4.8-10.8)
[2020-12-30 06:39] LABS: BUN Creatinine Ratio 25.3 (10-20); Calcium 8.8 mg/dl (8.5-10.1); Creatinine Clr Calc Pharmacy 102.5 ml/min; Est GFR (African American) 105.1 ml/min; Est GFR (Non-African American) 90.7 ml/min; Potassium 3.9 mmol/L (3.5-5.1)
--- NOTE | 2020-12-30 07:08 | Orthopedic Progress Note ---
Date of Service December 30, 2020 Assessment & Plan (1) Primary osteoarthritis of right knee: POD#2 Right TKA -Pain management as written -DVT prophylaxis-SCDs, TEDs, ASA 81mg BID -PT/OT -AM labs-hemoglobin stable at 13.1. Mild leukocytosis likely surgical stress/reactive, resolved -D/C planning-home with HHPT, plan on discharge today Admission and Anticipated Discharge Date Admission Date: December 28, 2020 Subjective POD#2 right TKA. Doing well, not having any pain. Denies fever, chills, chest pain, sob, dizziness, headache, n/v/d Review of Systems Review of Systems: All systems reviewed & are unremarkable except as noted in HPI & below Physical Exam Physical Exam: Right knee dressing is c/d/i, no calf tenderness, hemoac on suction. Toes mobile with good dorsiflexion. Distally n/v status and sensation intact. Constitutional: well developed and well nourished; no acute distress Results & Data ([facility]) Vital Signs (Past 12 Hours) Vital Signs Temp Pulse Resp BP Pulse Ox 12/30/20 05:45 36.5 C 57 L 14 145/88 H 98 12/29/20 22:36 36.7 C 57 L 17 137/84 98 Laboratory Results Lab Results 12/28/20 12/28/20 12/28/20 Range/Units 07:39 07:39 08:20 WBC (4.8-10.8) K/uL RBC (4.7-6.1) M/uL Hgb (14.0-18.0) g/dL Hct (42-52) % MCV (80-100) fL MCH (25-34) pg MCHC (32-36) g/dL RDW Std Deviation (36.4-46.3) fL RDW Coeff of Robbin (11.5-14.5) % Plt Count (130-400) K/uL MPV (7.4-10.4) fL Sodium (136-145) mmol/L Potassium (3.5-5.1) mmol/L Chloride (98-107) mmol/L Carbon Dioxide (21-32) mmol/L Anion Gap (3-11) BUN (7-18) mg/dl Creatinine (0.6-1.4) mg/dl Est Cr Clr Drug Dosing ml/min Est GFR ( Amer) ml/min Est GFR (Non-Af Amer) ml/min BUN/Creatinine Ratio (10-20) Glucose (70-99) mg/dl Calcium (8.5-10.1) mg/dl COVID-19 Eval Order Covid19 IDNow [facility] Hepatitis C Ab Screen Neg (Neg) SARS-CoV-2, RNA, NAAT (NEGATIVE) Blood Type O Positive Antibody Screen NEGATIVE 12/28/20 12/29/20 12/29/20 Range/Units 08:20 05:56 05:56 WBC 13.39 H (4.8-10.8) K/uL RBC 4.48 L (4.7-6.1) M/uL Hgb 12.9 L (14.0-18.0) g/dL Hct 38.6 L (42-52) % MCV 86.2 (80-100) fL MCH 28.8 (25-34) pg MCHC 33.4 (32-36) g/dL RDW Std Deviation 40.3 (36.4-46.3) fL RDW Coeff of Robbin 12.6 (11.5-14.5) % Plt Count 240 (130-400) K/uL MPV 11.3 H (7.4-10.4) fL Sodium 143 (136-145) mmol/L Potassium 3.7 (3.5-5.1) mmol/L Chloride 111 H (98-107) mmol/L Carbon Dioxide 27 (21-32) mmol/L Anion Gap 6.0 (3-11) BUN 28 H (7-18) mg/dl Creatinine 0.75 (0.6-1.4) mg/dl Est Cr Clr Drug Dosing 105.2 ml/min Est GFR ( Amer) 106.2 ml/min Est GFR (Non-Af Amer) 91.6 ml/min BUN/Creatinine Ratio 36.8 H (10-20) Glucose 112 H (70-99) mg/dl Calcium 8.9 (8.5-10.1) mg/dl COVID-19 Eval Order Hepatitis C Ab Screen (Neg) SARS-CoV-2, RNA, NAAT NEGATIVE (NEGATIVE) Blood Type Antibody Screen 12/30/20 12/30/20 Range/Units 05:38 05:38 WBC 9.73 (4.8-10.8) K/uL RBC 4.45 L (4.7-6.1) M/uL Hgb 13.1 L (14.0-18.0) g/dL Hct 39.6 L (42-52) % MCV 89.0 (80-100) fL MCH 29.4 (25-34) pg MCHC 33.1 (32-36) g/dL RDW Std Deviation 42.7 (36.4-46.3) fL RDW Coeff of Robbin 13.1 (11.5-14.5) % Plt Count 241 (130-400) K/uL MPV 11.0 H (7.4-10.4) fL Sodium 143 (136-145) mmol/L Potassium 3.9 (3.5-5.1) mmol/L Chloride 109 H (98-107) mmol/L Carbon Dioxide 30 (21-32) mmol/L Anion Gap 4.0 (3-11) BUN 19 H (7-18) mg/dl Creatinine 0.77 (0.6-1.4) mg/dl Est Cr Clr Drug Dosing 102.5 ml/min Est GFR ( Amer) 105.1 ml/min Est GFR (Non-Af Amer) 90.7 ml/min BUN/Creatinine Ratio 25.3 H (10-20) Glucose 86 (70-99) mg/dl Calcium 8.8 (8.5-10.1) mg/dl COVID-19 Eval Order Hepatitis C Ab Screen (Neg) SARS-CoV-2, RNA, NAAT (NEGATIVE) Blood Type Antibody Screen
--- NOTE | 2020-12-30 08:28 | Hospitalist Progress Note ---
Date of Service December 30, 2020 Assessment & Plan (1) Primary osteoarthritis of right knee: POD#[address] Mendez. EBL 5cc. Pre-op hgb 13.1 --> 12.9 -- acute blood loss from surgery PT/OT/pain management per primary service Hemovac with 500cc --> only 50cc overnight -- hgb improved to 13.1 today DVT prophylaxis with SCDs, Teds, ASA 81mg BID Discharge this afternoon planned (2) BPH w urinary obs/LUTS: Hilario madera at home, Started on tadalafil at most recent Urology visit. PSA was elevated at 4.07 (stable given age) Flomax prn Rec f/u with Urology at d/c (3) Hypertension: BP elevated 145/88 Continue atenolol 50 mg daily, amlodipine 10mg, HCTZ 12.5mg daily --Resumed HCTZ this AM after 1L yesterday and holding this for some dehydration (4) Hyperlipidemia: continue atorvastatin 40mg HS, ezetimibe 10mg (5) Sleep apnea: CPAP HS DVT Prophylaxis SCDs, TEDs, ASA 81mg BID Dispo: d/c this afternoon planned Thank you for allowing hospitalist to participate in the care of Mr Shanks. Hospitalist service will chart check in am. Please call with any questions/concerns. Admission and Anticipated Discharge Date Admission Date: December 28, 2020 Subjective Patient evaluated this morning. Feels great. pain controlled. Urinated through the night with the IVF but feeling better this morning. Resuming HCTZ. Plans for Hemovac removal around noon and discharge today. No fever, chills, chest pain, shortness of breath, abdominal pain, n/v/d or other symptoms at this time. Review of Systems Review of Systems: All systems reviewed & are unremarkable except as noted in HPI & below Physical Exam Constitutional: WD/WN, vitals as above cooperative and comfortable; no acute distress Eyes: + anicteric sclerae and PERRL ENMT: Ears: no hearing impairment Neck: normal visual inspection and trachea midline Respiratory: normal respiratory effort, lungs clear to auscultation Cardiovascular: RRR, no murmur, no edema Gastrointestinal (Abdomen): normal bowel sounds, soft, nontender, no hepatosplenomegaly Musculoskeletal: dressing to RIGHT knee c/d/i with ELISEO wrap and ice pack. Hemovac scant bloody drainage NVI pulses palpable bilaterally calves non-tender to palpation Skin: no rashes, warm and dry Neurologic: patellar DTR's 2+ bilat, sensation intact Psychiatric: A+Ox3, euthymic affect Lymphatic: no cervical or axillary lymphadenopathy Results & Data Results & Data ([facility]) Vital Signs (Past 12 Hours) Vital Signs Temp Pulse Resp BP Pulse Ox 12/30/20 05:45 36.5 C 57 L 14 145/88 H 98 12/29/20 22:36 36.7 C 57 L 17 137/84 98 Laboratory Results 12/30/20 12/30/20 Range/Units 05:38 05:38 WBC 9.73 (4.8-10.8) K/uL RBC 4.45 L (4.7-6.1) M/uL Hgb 13.1 L (14.0-18.0) g/dL Hct 39.6 L (42-52) % MCV 89.0 (80-100) fL MCH 29.4 (25-34) pg MCHC 33.1 (32-36) g/dL RDW Std Deviation 42.7 (36.4-46.3) fL RDW Coeff of Robbin 13.1 (11.5-14.5) % Plt Count 241 (130-400) K/uL MPV 11.0 H (7.4-10.4) fL Sodium 143 (136-145) mmol/L Potassium 3.9 (3.5-5.1) mmol/L Chloride 109 H (98-107) mmol/L Carbon Dioxide 30 (21-32) mmol/L Anion Gap 4.0 (3-11) BUN 19 H (7-18) mg/dl Creatinine 0.77 (0.6-1.4) mg/dl Est Cr Clr Drug Dosing 102.5 ml/min Est GFR ( Amer) 105.1 ml/min Est GFR (Non-Af Amer) 90.7 ml/min BUN/Creatinine Ratio 25.3 H (10-20) Glucose 86 (70-99) mg/dl Calcium 8.8 (8.5-10.1) mg/dl PG Care Time/CCT Total # of Minutes Spent Total Time Spent with Patient: Total time spent is greater than 50% in coordination of care (as documented) at patient's floor/unit and/or counseling patient: Coding Level of Care Code 18722 Subseq Obs Care Lvl 2 Diagnoses Primary osteoarthritis of right knee M17.11 BPH w urinary obs/LUTS N40.1; N13.8 Hypertension I10 Hyperlipidemia E78.5 Sleep apnea G47.30
[2020-12-30] MEDS: ASCORBIC ACID 500 MG TAB PO SCH (09:02)
[2020-12-30] MEDS: FEXOFENADINE HCL 180 MG TAB PO SCH (09:02)
[2020-12-30] MEDS: ATENOLOL 50 MG TABLET PO SCH (09:02)
[2020-12-30] MEDS: ASPIRIN 81 MG ECTAB PO SCH (09:02)
[2020-12-30] MEDS: DOCUSATE SODIUM 100 MG CAP PO SCH (09:02)
[2020-12-30] MEDS: POLYETHYLENE (MIRALAX) 17 GM PACK PO SCH (09:03)
[2020-12-30] MEDS: amLODIPine BESYLATE 5 MG TAB PO SCH (09:03)
[2020-12-30] MEDS: MULTIVITAMIN TAB PO SCH (09:03)
--- NOTE | 2020-12-30 22:36 | Discharge Summary ---
Date of Service December 30, 2020 Admission HPI Per Admitting Provider 70 year old male with PMHx significant for HTN, high cholesterol, SUKUMAR, BPH who has long standing right knee pain. He has failed conservative measures including anti-inflammatories, cortisone, and viscoelastic injections. Pain is interfering with his daily activities. He would like to proceed with right knee replacement. Previously has had left knee replaced and has done well. Patient denies headaches, sweats, fevers, chills, double vision, blurred vision, cough, sore throat, dysphagia, chest pain, sob, wheezing, n/v/d/c, numbness, tingling, fatigue, urinary symptoms, mood disorders. ROS positive for right knee pain and stiffness. Admission Exam Per Admitting Provider Constitutional: well developed and well nourished; no acute distress Eyes: PERRL, conjunctivae normal, anicteric sclerae ENMT: external ear and nose normal, oropharynx normal Neck: trachea midline, no thyromegaly Respiratory: normal respiratory effort, lungs clear to auscultation Cardiovascular: RRR, no murmur, no edema Musculoskeletal: Right knee: Tenderness medial joint line. ROM 0-135 with crepitation. Stable to valgus and varus stress test. Varus alignment. Positive Anna's Skin: no rashes, warm and dry Neurologic: patellar DTR's 2+ bilat, sensation intact Psychiatric: A+Ox3, euthymic affect Principal Diagnosis Right knee osteoarthritis Discharge Exam Constitutional well developed and well nourished; no acute distress Eyes PERRL, conjunctivae normal, anicteric sclerae ENMT external ear and nose normal, oropharynx normal Neck trachea midline, no thyromegaly Respiratory normal respiratory effort, lungs clear to auscultation Cardiovascular RRR, no murmur, no edema Skin no rashes, warm and dry Neurologic patellar DTR's 2+ bilat, sensation intact Psychiatric A+Ox3, euthymic affect Discharge Data Allergies Allergy/AdvReac Type Severity Reaction Status Date / Time mold Allergy Unknown Congestion, Verified 12/28/20 07:16 itchy eyes No Known Drug Allergies Allergy Unknown NONE Verified 12/28/20 07:16 Consultations 12/22/20 15:22 Consult Hospitalist Routine Procedures Performed Operation Date: 12/28/20 09:35 Actual Procedures p Right Total Knee Arthroplasty(Right) - Graham Mendez MD Ordered Studies 12/28/20 05:00 US - OR guided needle placemen Routine Hospital Course (1) Primary osteoarthritis of right knee: Patient presented for same day admission following right total knee arthroplasty on 12/28/20. He tolerated procedure well. The Patient had an uneventful hospital course. Post-operatively, his activity was progressed and well tolerated. They participated in PT with ambulation distance of [address] M of operative knee reached 92 degrees. Labs remained stable- lowest hemoglobin recorded:13.1 . [facility] hospitalists were consulted for medical management during admission. He did receive IV fluids on POD1 to help with some dehydration. Pain controlled on oral medications. Please refer to daily progress notes and PT notes for complete details. After exam on 12/30/20, patient was felt to be stable for discharge home with home health PT. Patient will f/u in the office in about 2 weeks for further evaluation including x-rays and incision check, sooner if having any issues or concerns. POD#2 Right TKA -Pain management as written -DVT prophylaxis-SCDs, TEDs, ASA 81mg BID -PT/OT -AM labs-hemoglobin stable at 13.1. Mild leukocytosis likely surgical stress/reactive, resolved -D/C planning-home with HHPT, plan on discharge today Total Time Total Time Spent Total Time Spent (In Minutes): 20 Discharge Plan Discharge Items Patient Disposition: Home - Home Health Services Reason For Visit: Unilateral Primary Osteoarthritis Right Knee Discharge Diagnosis: Right knee osteoarthritis Activity: Per Instructions section Non-emergency contact: Surgeon Call non-emergency contact if: you have any medication questions, your pain is not controlled, your pain is worsening, you have a fever, your temperature is above 101, your wound has increased redness and your wound has increased drainage Follow-up/Referrals: Jonathan Arreguin [Primary Care Provider] - Diet: Regular Addtl Attending Provider Instructions: ACTIVITY RECOMMENDATIONS: SELF CARE INSTRUCTIONS AFTER TOTAL KNEE REPLACEMENT A. You may need to continue a physical therapy program after discharge from the hospital. There are several options available to you. Your doctor will assist you in selecting the best one for you. 1. An out-patient facility 2 to 3 times a week for therapy or home therapy. 2. Continue working on all exercises taught to you in the hospital. Your goals should be to increase bending of your knee to 90 degrees and beyond and to fully straighten your knee. B. You may progress at your own pace from walking with a walker or crutches to a cane; then to no assistive devices. C. Make walking a part of your daily routine. Be up as much as comfortable with rest periods throughout the day. Rest with leg elevation is very important. Use the ice wrap frequently for the first 3-4 weeks. D. There are no restrictions on activities. You may ride in a car, shop, participate in vice provost and all social activities. E. Wear the long elastic stockings (ALEA hose) 20 hours a day for 2 weeks after surgery. They can be removed several times a day for laundering and for a bath. F. You may shower, no tub baths until cleared by your doctor. SPECIAL CARE INSTRUCTIONS: VERY IMPORTANT TO READ AND REVIEW A. There are a few signs you need to watch for after you are home. Call [facility] if you notice any of the followin. Increased severe knee pain. Some pain is expected especially when you exercise. 2. Increased swelling in your leg or knee; pain or swelling of the calf muscle in either lower leg. 3. Any fluid drainage from the incision. 4. Shortness of breath or chest pain. B. Please call [facility] at if you have any concerns or questions about your operation or recovery. The doctor or his nurse will return your call promptly. C. You must take antibiotics before dental work, bladder, bowel or other surgery. Your doctor will provide you with a permanent care to carry describing this precaution. IMPORTANT: * REMEMBER TO TAKE ASPIRIN, 81 MG, TWICE DAILY FOR 4 WEEKS UNLESS OTHERWISE DIRECTED. THIS IS YOUR BLOOD THINNER. * HIGH RISK PATIENTS MAY BE PRESCRIBED A STRONGER BLOOD THINNER. THIS WILL BE PROVIDED AT DISCHARGE. * CALL IF INCREASED PAIN, REDNESS, DRAINAGE OR FEVER GREATER THAT 101. * WEAR ALEA HOSE 20 HOURS PER DAY FOR 2 WEEKS. This is a large suction dressing covering your incision. This will help pull any excess drainage from the wound and allow your incision to heal properly. You may shower with this if you can keep the unit outside of the shower. If any bleeding or leakage is noted please call your doctor's office. This will remain on your incision for 7 days and then should be removed. This can be done yourself or by the home nursing staff if applicable. The entire unit is disposable once removed. Once removed, keep incision clean and dry. If redness or drainage is noted, please call your surgeon. IF INCISION IS LEAKING THROUGH DRESSING, CALL THE OFFICE . FOLLOW UP VISIT: If appointment is not already scheduled: Please call [facility] to make a follow-up appointment for 2 weeks after your surgery at . Stand-Alone Forms: My [facility], Opioid Pain Management, Smoking Cessation Medications and DC Order Prescriptions: New celecoxib [Celebrex] 200 mg Capsule 200 mg PO BID Qty: 60 RF: 0 aspirin 81 mg Tablet,Delayed Release (Dr/Ec) 81 mg PO BID Qty: 60 RF: 0 acetaminophen 500 mg Tablet 1,000 mg PO Q8 Qty: 60 RF: 0 oxycodone 5 mg Tablet 5 - 10 mg PO .Q4h-6h MDD 6 PRN (Reason: pain) Qty: 30 RF: 0 Continued atorvastatin 40 mg Tablet 40 mg PO PM RF: 0 fexofenadine 180 mg Tablet 180 mg PO QAM RF: 0 amlodipine 10 mg Tablet 10 mg PO QAM RF: 0 hydrochlorothiazide 12.5 mg Capsule 12.5 mg PO QAM RF: 0 atenolol 50 mg Tablet 50 mg PO QAM RF: 0 ascorbic acid (vitamin C) [Vitamin C] 500 mg Tablet Extended Release 500 mg PO BID RF: 0 ezetimibe 10 mg Tablet 10 mg PO PM RF: 0 vitamin E 400 unit Capsule 400 unit PO QPM RF: 0 Discontinued omega [id number] oil [Fish Oil] 1,200 (144-216) mg Capsule 1,200 cap PO BID RF: 0 oxycodone 5 mg Tablet 5 - 10 mg PO Q6H PRN (Reason: pain) Qty: 30 RF: 0 Discharge Orders: Discharge Order (Routine); Ordered 12/30/20 Ordered By: Twin Lomax/Other Patient Handouts: DVT Post Op Prevention, RICE Admission Data Admit Date/Time: 12/28/20 12:37 Attending Provider: Graham Mendez Admit Provider: Graham Mendez Primary Care Provider: Jonathan Arreguin Other Providers: Covaleski,Carter E. Other Interventions: Discharge Summary Assessment (RN) Last Done: 12/30/20 10:45
== END 2020-12-30 12:47 | disposition home health service (06) | DRG 470 ==
LOC: ASU 06:44 → 3E 06:44 → OBSVTOIN 12:37